=== PATIENT | male | born 1935 | race Caucasian/White ===

== ENCOUNTER 2018-11-01 21:08 | Emergency (ER) | payer MEDICARE, BC, MEDICAID ==
[~2018-11-01] VITALS: Ht 165.1 cm; Wt 68.0 kg
[2018-11-01] MEDS ORDERED: TYLENOL EXTRA500 MG ORAL (21:20)
[2018-11-01] MEDS ORDERED: BISACODYL5 MG ORAL (21:20)
[2018-11-01] MEDS ORDERED: LOSARTAN POTASS50 MG ORAL (21:20)
[2018-11-01] MEDS ORDERED: COLACE100 MG ORAL (21:20)
[2018-11-01 21:34] VITALS: BP 143/115
--- NOTE | 2018-11-02 00:56 | Emergency Room Report ---
History of Present Illness General Chief Complaint: Multiple Trauma/Fall Source: EMS Present Illness HPI 83-year-old male presents ED for evaluation. Patient brought in by EMS. Patient from [facility] status post mechanical fall. Patient was being moved by nursing staff when he fell forward tonight. Hitting his head. No LOC. Laceration to his forehead and scalp. Tetanus unknown. Patient denies any pain. Denies any nausea or vomiting. Denies any photophobia or blurry vision. Denies neck pain or neck stiffness. No other aggravating relieving factors. Denies any other associated symptoms Allergies: Uncoded Allergies: PENICILLIN (Allergy, Unknown, 11/01/18) Patient History Past Medical History: HTN Past Surgical History: none Pertinent Family History: none Social History: Denies: smoking, alcohol use, drug use Immunizations: UTD Reviewed Nursing Documentation: PMH: Agreed; PSxH: Agreed Nursing Documentation-PMH Hx Hypertension: Yes Review of Systems All Other Systems: negative except mentioned in HPI Physical Exam Vital Signs Date Time Temp Pulse Resp B/P (MAP) Pulse Ox O2 Delivery O2 Flow Rate FiO2 11/01/18 21:14 98.1 108 24 142/87 94 Room Air Sp02 EP Interpretation: reviewed, normal General Appearance: no apparent distress, alert, GCS 15, non-toxic Head: normocephalic, other - 1cm laceration to forehead, 3cm laceration to L parietal scalp Eyes: bilateral eye normal inspection, bilateral eye PERRL ENT: hearing grossly normal, normal pharynx, no angioedema, normal voice Neck: full range of motion, supple/symm/no masses, tender lateral Respiratory: chest non-tender, lungs clear, normal breath sounds, speaking full sentences Cardiovascular #1: normal inspection Gastrointestinal: normal inspection Rectal: deferred Genitourinary: no CVA tenderness Musculoskeletal: normal inspection Neurologic: alert, oriented x3, responsive, motor strength/tone normal, sensory intact, speech normal Psychiatric: normal inspection Skin: normal inspection Lymphatic: normal inspection Procedures Laceration/Wound Repair Laceration/Wound Repair #1: Consent: Verbal Wound Location: head - forehead Wound's Depth, Shape: linear Wound Explored: clean Betadine Prep?: Yes Anesthesia: 1% Lidocaine Wound Debrided: minimal Wound Repaired With: sutures Suture Size/Type: 6:0, proline Layer Closure?: No Sterile Dressing Applied?: Yes Splint Applied?: No Sling Applied?: No Patient Tolerated: Well Complications: None Laceration/Wound Repair #2: Consent: Verbal Wound Location: other - scalp Wound's Depth, Shape: linear Wound Explored: clean Betadine Prep?: Yes Anesthesia: 1% Lidocaine Wound Debrided: minimal Wound Repaired With: myrna Layer Closure?: No Sterile Dressing Applied?: Yes Splint Applied?: No Sling Applied?: No Patient Tolerated: Well Complications: None Medical Decision Making Diagnostic Impression: Primary Impression: Laceration of scalp Qualified Codes: S01.01XA - Laceration without foreign body of scalp, initial encounter Additional Impression: Head injury Qualified Codes: S09.90XA - Unspecified injury of head, initial encounter ER Course Hospital Course 83-year-old M presents ED with laceration to forehead/scalp s/p mecahnical fall. Differential diagnoses include: skull fx, intracranial injury, concussion Clinical course Patient placed on stretcher. After initial history and physical I ordered CT head, Cspine, TDAP CT head/Cspine shows no acute process. Patient at baseline mentation Wound irrigated and cleaned. Repaired. discussed with PMD Dr. Baer. Patient will be discharged back to [facility] Diagnosis - head injury, laceration of scalp Stable and discharged to SNF. wound care instructions given. Followup with PMD. Return to ED if symptoms recur or worsen CT/MRI/US Diagnostic Results CT/MRI/US Diagnostic Results #1: Imaging Test Ordered: CT Head Impression no acute process CT/MRI/US Diagnostic Results #2: Imaging Test Ordered: CT C spine Impression no acute process Last Vital Signs Date Time Temp Pulse Resp B/P (MAP) Pulse Ox O2 Delivery O2 Flow Rate FiO2 11/01/18 21:34 98.1 113 18 143/115 100 Room Air Status: improved Disposition: XFER SNF Condition: Stable Patient Instructions: Head Injury, Adult, Znen-de-Aizy, Facial Laceration, Easy -to-Read Reji Menjivar MD Nov 02, 2018 00:56
[2018-11-02] MEDS ORDERED: Tetanus/Diptheria/Pertussis Vaccine 0.5ml Syr IM ONE (01:00)
[2018-11-02 01:15] VITALS: BP 138/110
--- NOTE | 2018-11-02 10:02 | Diagnostic Imaging Report ---
Indication: Neck pain, status post fall Technique: Spiral acquisitions obtained through the cervical spine. No IV contrast utilized. Multiplanar reconstructions were generated. Total dose length product 1556.31 mGycm. CTDIvol(s) 70.38,12.24 mGy. Dose reduction achieved using automated exposure control. Comparison: none Findings: There is image degradation due to motion artifact. There is slight anterior offset of C7 on T1. The bony alignment is otherwise normal. There is no prevertebral soft tissue swelling. Vertebral body heights are preserved. No acute fractures. No dislocations. At C2-3, there is severe degenerative disc narrowing. There is severe narrowing of the right neural foramen. The disc is not well delineated, but there may appears to be be broad-based posterior disc protrusion resulting in moderate spinal stenosis. At C3-4, there is severe degenerative disc narrowing and bilateral facet arthrosis. There is broad-based posterior disc protrusion and osteophyte complex resulting in mild to moderate spinal stenosis. There is severe stenosis of the bilateral neural foramina. At C4-5, there is severe degenerative disc narrowing as well as bilateral facet arthrosis. No significant disc bulge or protrusion or spinal stenosis. There is severe neural foraminal stenosis bilaterally. At C5-6, there is moderate degenerative disc narrowing. There is bilateral facet arthrosis. There is minimal circumferential annular bulge and posterior osteophyte complex, resulting in borderline narrowing of the spinal canal. There is moderate bilateral neural foraminal stenosis. At C6-7, there is severe degenerative disc narrowing. There is bilateral facet arthrosis. No definite significant disc bulge or protrusion or spinal stenosis. There is moderate to severe neural foraminal narrowing bilaterally. At C7-T1, there is moderate degenerative disc narrowing. There is bilateral facet arthrosis. No definite significant disc bulge or protrusion, spinal stenosis, or neural foraminal narrowing. The included extra spinal soft tissues demonstrate heavy calcification of the bilateral carotid bifurcations. Impression: Limited exam due to motion artifact No acute bony trauma Advanced multilevel degenerative changes, as detailed on a level by level basis above This agrees with the preliminary interpretation provided overnight by [facility]. The CT scanner at [facility] is accredited by the [employer] and the scans are performed using protocols designed to limit radiation exposure to as low as reasonably achievable to attain images of sufficient resolution adequate for diagnostic evaluation.
--- NOTE | 2018-11-02 11:30 | Diagnostic Imaging Report ---
Indications: Head pain, status post fall Technique: Spiral acquisitions obtained through the brain. Angled axial and coronal 5 x 5 mm slices were reconstructed. Total dose length product 1556.31 mGycm. CTDI vol(s) 70.38,12.24 mGy. Dose reduction achieved using automated exposure control Comparison: None. Findings: There is some image degradation due to motion artifact. There is marked age-related enlargement of the ventricles and extra axial CSF spaces. There is mild periventricular deep white matter low-attenuation consistent with chronic ischemic change. Old lacunar infarct is seen in the right basal ganglia. No acute intracranial hemorrhage or edema, mass effect, nor midline shift. The calvarium is intact. There is complete opacification of the right maxillary sinus. The remaining sinuses are clear. The mastoids are clear. The calvarium is intact Impression: Chronic and age-related changes. Negative for acute intracranial bleed or mass effect Right maxillary sinus disease This agrees with the preliminary interpretation provided overnight by [facility]. The CT scanner at [facility] is accredited by the [employer] and the scans are performed using protocols designed to limit radiation exposure to as low as reasonably achievable to attain images of sufficient resolution adequate for diagnostic evaluation.
== END 2018-11-02 01:15 ==
LOC: EDBD 21:08 → EMR 21:41
DX: S01.01XA Laceration without foreign body of scalp, initial encounter (principal); S01.81XA Laceration without foreign body of other part of head, initial encounter; W19.XXXA Unspecified fall, initial encounter; Y92.129 Unspecified place in nursing home as the place of occurrence of the external cause; Z23 Encounter for immunization; I10 Essential (primary) hypertension; Z88.0 Allergy status to penicillin; M50.31 Other cervical disc degeneration, high cervical region; R51 Headache; J32.0 Chronic maxillary sinusitis
CPT/HCPCS: 70450; 72125; 90471; 90715; 99283

== ENCOUNTER 2019-10-17 21:57 | Inpatient (IN) | payer MEDICARE, BC, MEDICAID ==
[~2019-10-17] VITALS: Ht 167.6 cm; Wt 52.6 kg
[~2019-10-17 21:57] MED LIST: BISACODYL5 MG RC; COLACE100 MG ORAL; LOSARTAN POTASS50 MG ORAL; TYLENOL EXTRA500 MG ORAL
[2019-10-17 22:15] VITALS: BP 125/71
--- NOTE | 2019-10-17 22:20 | Emergency Room Report ---
History of Present Illness General Chief Complaint: Upper Respiratory Illness Source: Medical Record, EMS, PMD Present Illness HPI This an 84-year-old [facility] patient who presents with chief complaint of shortness of breath and congestion. Onset for 1 day. He has a cough. He has hypoxia. No nausea vomiting or diarrhea. No chest pain. History is limited on this patient because of his dementia. History is through primary care doctor in [facility] note. There was no mention of fever. Allergies: Uncoded Allergies: PENICILLIN (Allergy, Unknown, 11/01/18) Patient History Past Medical History: see triage record, old chart reviewed, HTN, CAD Past Surgical History: CABG, other Pertinent Family History: none Social History: Denies: smoking Immunizations: other Reviewed Nursing Documentation: PMH: Agreed; PSxH: Agreed Nursing Documentation-PMH Past Medical History: No History, Except For Hx Cardiac Problems: Yes - aorotcoronary bypass graft, muscle weakness Hx Hypertension: Yes - Hypertension Review of Systems Respiratory: Reports: cough, shortness of breath All Other Systems: limited - Secondary to patient's condition and dementia Physical Exam Vital Signs Date Time Temp Pulse Resp B/P (MAP) Pulse Ox O2 Delivery O2 Flow Rate FiO2 10/17/19 21:56 98.8 82 18 125/71 (89) Vitals normal. Sp02 EP Interpretation: reviewed, normal General Appearance: no apparent distress, alert, Chronically Ill Head: normocephalic, atraumatic Eyes: bilateral eye PERRL, bilateral eye EOMI ENT: hearing grossly normal, normal pharynx Neck: full range of motion, supple, no meningismus Respiratory: chest non-tender, rhonchi Cardiovascular #1: regular rate, rhythm, no murmur Gastrointestinal: normal bowel sounds, non tender, no mass, no organomegaly, no bruit, non-distended Musculoskeletal: back normal, normal range of motion, gait/station normal Psychiatric: mood/affect normal Procedures Critical Care Time Critical Care Time Critical care is mandated in this patient who presented with CHF and sepsis. Patient require my urgent intervention to attenuate the risks of metabolic collapse which may lead to cardiovascular collapse and . Critical care time is 35 minutes excluding any reportable procedure. Critical care time included evaluation, multiple reevaluation, looking at old charts, interpreting laboratory and diagnostic data, discussing case with patient and family and consultants, and charting. Medical Decision Making Diagnostic Impression: Primary Impression: Sepsis Qualified Codes: A41.9 - Sepsis, unspecified organism; R65.20 - Severe sepsis without septic shock; N17.9 - Acute kidney failure, unspecified Additional Impressions: UTI (urinary tract infection) Qualified Codes: N30.00 - Acute cystitis without hematuria Acute exacerbation of CHF (congestive heart failure) Qualified Codes: I50.9 - Heart failure, unspecified ACS (acute coronary syndrome) Anemia Qualified Codes: D64.9 - Anemia, unspecified NOE (acute kidney injury) Proteinuria Qualified Codes: R80.9 - Proteinuria, unspecified ER Course This patient presents with shortness of breath and cough. Chest x-ray and laboratory data showed CHF. His troponin is in the indeterminate range. This may be secondary to demand ischemia. He noted to have elevated lactic acid and white cell count. Source of infection is from urine. I did not give him a 30 cc/kg bolus of normal saline because of his elevated BNP and fluid overloaded picture on the chest x-ray. Blood pressures been stable. Patient will be admitted for IV antibiotics and gentle diuresis. I discussed the case with Dr. Michelle who will admit. EKG Diagnostic Results Rate: normal Rhythm: NSR ST Segments: other - NSST changes Rhythm Strip Diag. Results EP Interpretation: yes Rate: 100 Rhythm: NSR, no PVC's, no ectopy Chest X-Ray Diagnostic Results Chest X-Ray Diagnostic Results : Chest X-Ray Ordered: Yes # of Views/Limited/Complete: 1 View Indication: Shortness of Breath EP Interpretation: Yes Interpretation: no consolidation, no effusion, no pneumothorax, other - vasc congestion Impression: Other - chf Electronically Signed by: Chaka Lobato MD Last Vital Signs Date Time Temp Pulse Resp B/P (MAP) Pulse Ox O2 Delivery O2 Flow Rate FiO2 10/17/19 21:56 98.8 82 18 125/71 (89) Status: improved Disposition: ADMITTED INPATIENT Condition: Serious Chaka Lobato MD Oct 17, 2019 22:20
[2019-10-17 22:58] LABS: BASOPHILS % (AUTO) 0.5 % (0.0-2.0); EOSINOPHILS % (AUTO) 1.7 % (0.0-3.0); HEMATOCRIT 31.9 % (42.0-52.0); HEMOGLOBIN 10.7 G/DL (14.2-18.0); LYMPHOCYTES % (AUTO) 11.2 % (20.0-45.0); MEAN CORPUSCULAR VOLUME 93 FL (80-99); MONOCYTES % (AUTO) 3.8 % (1.0-10.0); NEUTROPHILS % (AUTO) 82.8 % (45.0-75.0); PLATELET COUNT 196 K/UL (150-450); RED BLOOD COUNT 3.43 M/UL (4.70-6.10); RED CELL DISTRIBUTION WIDTH 11.5 % (11.6-14.8); WHITE BLOOD COUNT 15.3 K/UL (4.8-10.8)
[2019-10-17 23:12] LABS: ANION GAP 11 mmol/L (5-15); BLOOD UREA NITROGEN 44 mg/dL (7-18); CALCIUM 9.6 MG/DL (8.5-10.1); CARBON DIOXIDE 27 MMOL/L (21-32); CHLORIDE 104 MMOL/L (98-107); CREATININE 1.6 MG/DL (0.55-1.30); POTASSIUM 3.9 MMOL/L (3.5-5.1); SODIUM 142 MMOL/L (136-145)
[2019-10-17 23:28] LABS: ALANINE AMINOTRANSFERASE 16 U/L (12-78); ALBUMIN 2.9 G/DL (3.4-5.0); ALBUMIN/GLOBULIN RATIO 0.6 (1.0-2.7); ALKALINE PHOSPHATASE 89 U/L (46-116); ASPARTATE AMINO TRANSFERASE 15 U/L (15-37); BILIRUBIN,TOTAL 0.1 MG/DL (0.2-1.0); CKMB 0.6 NG/ML (0.0-3.6); CREATINE KINASE 31 U/L (26-308)
[2019-10-17] MEDS ORDERED: Enoxaparin 80mg Inj SUBQ ONE (23:45)
[2019-10-17 23:47] LABS: BILIRUBIN, URINE NEGATIVE (NEGATIVE); GLUCOSE, URINE (UA) NEGATIVE (NEGATIVE); KETONES,URINE NEGATIVE (NEGATIVE); NITRITE,URINE POSITIVE (NEGATIVE); PH,URINE 5 (4.5-8.0); PROTEIN,URINE 2+ (NEGATIVE); UROBILINOGEN,URINE NORMAL MG/DL (0.0-1.0)
[2019-10-17 23:50] LABS: COLOR,URINE YELLOW
[2019-10-17 23:56] LABS: APPEARANCE,URINE SLIGHTLY CLOUDY; LEUKOCYTE ESTERASE ,URINE 3+ (NEGATIVE)
[2019-10-18] VITALS (7 sets, daily range): BP systolic 103–147; BP diastolic 60–94
[2019-10-18] MEDS ORDERED: cefTRIAXone 1 GM in NS 55 ML IVPB ONE ×2
--- NOTE | 2019-10-18 00:20 | Emergency Room Report ---
Sepsis Event Note Evaluation Current Stage of Sepsis: Sepsis Possible Source: Genitourinary Focused Exam Allergies: Uncoded Allergies: PENICILLIN (Allergy, Unknown, 11/01/18) Date Exam Occurred: Oct 18, 2019 Time Exam Occurred: 00:20 Laboratory Studies Laboratory Tests Test 10/17/19 22:30 10/17/19 23:30 White Blood Count 15.3 K/UL (4.8-10.8) H Red Blood Count 3.43 M/UL (4.70-6.10) L Hemoglobin 10.7 G/DL (14.2-18.0) L Hematocrit 31.9 % (42.0-52.0) L Mean Corpuscular Volume 93 FL (80-99) Mean Corpuscular Hemoglobin 31.2 PG (27.0-31.0) H Mean Corpuscular Hemoglobin Concent 33.6 G/DL (32.0-36.0) Red Cell Distribution Width 11.5 % (11.6-14.8) L Platelet Count 196 K/UL (150-450) Mean Platelet Volume 6.7 FL (6.5-10.1) Neutrophils (%) (Auto) 82.8 % (45.0-75.0) H Lymphocytes (%) (Auto) 11.2 % (20.0-45.0) L Monocytes (%) (Auto) 3.8 % (1.0-10.0) Eosinophils (%) (Auto) 1.7 % (0.0-3.0) Basophils (%) (Auto) 0.5 % (0.0-2.0) Sodium Level 142 MMOL/L (136-145) Potassium Level 3.9 MMOL/L (3.5-5.1) Chloride Level 104 MMOL/L (98-107) Carbon Dioxide Level 27 MMOL/L (21-32) Anion Gap 11 mmol/L (5-15) Blood Urea Nitrogen 44 mg/dL (7-18) H Creatinine 1.6 MG/DL (0.55-1.30) H Estimat Glomerular Filtration Rate 41.6 mL/min (>60) Glucose Level 117 MG/DL (74-106) H Lactic Acid Level 3.30 mmol/L (0.4-2.0) H Calcium Level 9.6 MG/DL (8.5-10.1) Total Bilirubin 0.1 MG/DL (0.2-1.0) L Aspartate Amino Transf (AST/SGOT) 15 U/L (15-37) Alanine Aminotransferase (ALT/SGPT) 16 U/L (12-78) Alkaline Phosphatase 89 U/L (46-116) Total Creatine Kinase 31 U/L (26-308) Creatine Kinase MB 0.6 NG/ML (0.0-3.6) Creatine Kinase MB Relative Index 1.9 Troponin I 0.134 ng/mL (0.000-0.056) Pro-B-Type Natriuretic Peptide 4198 pg/mL (0-125) H Total Protein 7.6 G/DL (6.4-8.2) Albumin 2.9 G/DL (3.4-5.0) L Globulin 4.7 g/dL Albumin/Globulin Ratio 0.6 (1.0-2.7) L Urine Color Yellow Urine Appearance Slightly cloudy Urine pH 5 (4.5-8.0) Urine Specific [place] 1.020 (1.005-1.035) Urine Protein 2+ (NEGATIVE) H Urine Glucose (UA) Negative (NEGATIVE) Urine Ketones Negative (NEGATIVE) Urine Blood 3+ (NEGATIVE) H Urine Nitrite Positive (NEGATIVE) H Urine Bilirubin Negative (NEGATIVE) Urine Urobilinogen Normal MG/DL (0.0-1.0) Urine Leukocyte Esterase 3+ (NEGATIVE) H Urine RBC 2-4 /HPF (0 - 0) H Urine WBC Tntc /HPF (0 - 0) H Urine Squamous Epithelial Cells None /LPF (NONE/OCC) Urine Bacteria Moderate /HPF (NONE) H Vital Signs Last 24 Hour Vital Signs Date Time Temp Pulse Resp B/P (MAP) Pulse Ox O2 Delivery O2 Flow Rate FiO2 10/17/19 21:56 98.8 82 18 125/71 (89) Respiratory Exam: Rales Cardiovascular Exam: RRR Capillary Refill: Less Than 2 Seconds Peripheral Pulse: Strong Pulse Location: Radial Skin Exam: Normal Turgor Chaka Lobato MD Oct 18, 2019 00:20
[2019-10-18] MEDS ORDERED: Acetaminophen 650 MG SUPP RECTAL PRN (00:30)
[2019-10-18] MEDS ORDERED: LOSARTAN POTASS50 MG ORAL (00:34)
[2019-10-18] MEDS ORDERED: ALBUTEROL2.5 MG/3 M INH (00:34)
[2019-10-18] MEDS ORDERED: FERROUS SULFAT500 G1 PO (00:34)
[2019-10-18] MEDS ORDERED: GUAIFENESI100 MG/5 M ORAL (00:34)
[2019-10-18] MEDS ORDERED: TYLENOL EXTRA500 MG ORAL (00:35)
[2019-10-18] MEDS ORDERED: MILK OF MA400 MG/51 ORAL (00:35)
[2019-10-18] MEDS ORDERED: VITAMIN D34000 UNIT PO (01:45)
[2019-10-18] MEDS ORDERED: D5NS 1,000 ML IV SCH (03:00)
--- NOTE | 2019-10-18 09:11 | Diagnostic Imaging Report ---
Indication: Shortness of breath Technique: One view of the chest Comparison: none Findings: The heart is enlarged. Bilateral apical reticular nodular opacities likely reflect scarring. No definite infiltrates or effusions. The aorta is tortuous ectatic and calcified. There is evidence of prior CABG Impression: Cardiomegaly No definite acute process Chronic parenchymal changes of the bilateral lung apices
[2019-10-18] MEDS ORDERED: Losartan 50mg tab ORAL SCH (09:45)
[2019-10-18 10:19] LABS: HEMATOCRIT 29.4 % (42.0-52.0); HEMOGLOBIN 9.8 G/DL (14.2-18.0); MEAN CORPUSCULAR VOLUME 93 FL (80-99); PLATELET COUNT 200 K/UL (150-450); RED BLOOD COUNT 3.16 M/UL (4.70-6.10); RED CELL DISTRIBUTION WIDTH 11.5 % (11.6-14.8)
[2019-10-18 10:20] LABS: WHITE BLOOD COUNT 43.8 K/UL (4.8-10.8)
[2019-10-18 10:33] LABS: ANION GAP 10 mmol/L (5-15); BLOOD UREA NITROGEN 44 mg/dL (7-18); CARBON DIOXIDE 25 MMOL/L (21-32); CHLORIDE 104 MMOL/L (98-107); CREATININE 1.9 MG/DL (0.55-1.30); POTASSIUM 4.6 MMOL/L (3.5-5.1); SODIUM 139 MMOL/L (136-145)
[2019-10-18 10:45] LABS: ALANINE AMINOTRANSFERASE 13 U/L (12-78); ALBUMIN 2.6 G/DL (3.4-5.0); ALBUMIN/GLOBULIN RATIO 0.6 (1.0-2.7); ALKALINE PHOSPHATASE 81 U/L (46-116); ASPARTATE AMINO TRANSFERASE 18 U/L (15-37); BILIRUBIN,TOTAL 0.2 MG/DL (0.2-1.0); GAMMA GLUTAMYL TRANSPEPTIDASE 12 U/L (5-85); PHOSPHORUS 2.6 MG/DL (2.5-4.9)
[2019-10-18 12:53] LABS: FERRITIN 640 NG/ML (8-388)
[2019-10-18] MEDS ORDERED: Docusate 100mg cap ORAL SCH (13:00)
[2019-10-18 13:03] LABS: % IRON SATURATION 23 % (15-50); IRON 41 ug/dL (50-175); TOTAL IRON BINDING CAPACITY 179 ug/dL (250-450)
--- NOTE | 2019-10-18 14:08 | Infectious Diseases Prog Note ---
Assessment/Plan Problems: (1) Sepsis Assessment & Plan: source suspect UTI /Pyelonephritis will start meropenem and zyvox empirically pending cultures (2) UTI (urinary tract infection) Assessment & Plan: possible pyelonephritis complicated with sepsis , will start meropenem pending cultures (3) NOE (acute kidney injury) Assessment & Plan: suspect due to the above , rule out obstruction , continue hydration, will order renal US to rule out stone VS mass (4) Acute encephalopathy Assessment & Plan: due to the above , continue supportive care and hydration with antibiotics, monitor in tele Subjective Allergies: Coded Allergies: PENICILLINS (Verified Allergy, Unknown, 10/19/19) Objective Vital Signs Last 24 Hour Vital Signs Date Time Temp Pulse Resp B/P (MAP) Pulse Ox O2 Delivery O2 Flow Rate FiO2 10/18/19 12:00 98.1 79 19 106/81 (89) 100 10/18/19 12:00 89 10/18/19 09:45 103/65 10/18/19 09:00 Room Air 10/18/19 08:00 91 10/18/19 08:00 96.7 71 18 103/65 (78) 96 10/18/19 04:00 99.5 131 20 147/90 (109) 96 10/18/19 04:00 123 10/18/19 02:03 Room Air 10/18/19 01:53 97.5 10/18/19 01:49 102.2 131 20 124/94 (104) 97 10/18/19 01:00 98.8 99 18 130/86 98 Room Air 10/18/19 00:00 98.8 99 18 130/86 98 Room Air 10/17/19 22:15 82 18 10/17/19 22:15 98.8 92 18 125/71 96 Room Air 10/17/19 21:56 98.8 82 18 125/71 (89) Height (Feet): 5 Height (Inches): 6.00 Weight (Pounds): 117 Microbiology Date/Time Source Procedure Growth Status 10/18/19 00:00 Rectum Received Laboratory Tests Test 10/17/19 22:30 10/17/19 23:30 10/18/19 00:15 10/18/19 10:00 White Blood Count 15.3 K/UL (4.8-10.8) H Red Blood Count 3.43 M/UL (4.70-6.10) L Hemoglobin 10.7 G/DL (14.2-18.0) L Hematocrit 31.9 % (42.0-52.0) L Mean Corpuscular Volume 93 FL (80-99) Mean Corpuscular Hemoglobin 31.2 PG (27.0-31.0) H Mean Corpuscular Hemoglobin Concent 33.6 G/DL (32.0-36.0) Red Cell Distribution Width 11.5 % (11.6-14.8) L Platelet Count 196 K/UL (150-450) Mean Platelet Volume 6.7 FL (6.5-10.1) Neutrophils (%) (Auto) 82.8 % (45.0-75.0) H Lymphocytes (%) (Auto) 11.2 % (20.0-45.0) L Monocytes (%) (Auto) 3.8 % (1.0-10.0) Eosinophils (%) (Auto) 1.7 % (0.0-3.0) Basophils (%) (Auto) 0.5 % (0.0-2.0) Sodium Level 142 MMOL/L (136-145) Potassium Level 3.9 MMOL/L (3.5-5.1) Chloride Level 104 MMOL/L (98-107) Carbon Dioxide Level 27 MMOL/L (21-32) Anion Gap 11 mmol/L (5-15) Blood Urea Nitrogen 44 mg/dL (7-18) H Creatinine 1.6 MG/DL (0.55-1.30) H Estimat Glomerular Filtration Rate 41.6 mL/min (>60) Glucose Level 117 MG/DL (74-106) H Lactic Acid Level 3.30 mmol/L (0.4-2.0) H 2.90 mmol/L (0.66-2.22) H Calcium Level 9.6 MG/DL (8.5-10.1) Total Bilirubin 0.1 MG/DL (0.2-1.0) L Aspartate Amino Transf (AST/SGOT) 15 U/L (15-37) Alanine Aminotransferase (ALT/SGPT) 16 U/L (12-78) Alkaline Phosphatase 89 U/L (46-116) Total Creatine Kinase 31 U/L (26-308) Creatine Kinase MB 0.6 NG/ML (0.0-3.6) Creatine Kinase MB Relative Index 1.9 Troponin I 0.134 ng/mL (0.000-0.056) Pro-B-Type Natriuretic Peptide 4198 pg/mL (0-125) H Total Protein 7.6 G/DL (6.4-8.2) Albumin 2.9 G/DL (3.4-5.0) L Globulin 4.7 g/dL Albumin/Globulin Ratio 0.6 (1.0-2.7) L Urine Color Yellow Urine Appearance Slightly cloudy Urine pH 5 (4.5-8.0) Urine Specific [place] 1.020 (1.005-1.035) Urine Protein 2+ (NEGATIVE) H Urine Glucose (UA) Negative (NEGATIVE) Urine Ketones Negative (NEGATIVE) Urine Blood 3+ (NEGATIVE) H Urine Nitrite Positive (NEGATIVE) H Urine Bilirubin Negative (NEGATIVE) Urine Urobilinogen Normal MG/DL (0.0-1.0) Urine Leukocyte Esterase 3+ (NEGATIVE) H Urine RBC 2-4 /HPF (0 - 0) H Urine WBC Tntc /HPF (0 - 0) H Urine Squamous Epithelial Cells None /LPF (NONE/OCC) Urine Bacteria Moderate /HPF (NONE) H Iron Level 41 ug/dL (50-175) L Total Iron Binding Capacity 179 ug/dL (250-450) L Percent Iron Saturation 23 % (15-50) Unsaturated Iron Binding 138 ug/dL (112-346) Ferritin 640 NG/ML (8-388) H Vitamin B12 Level 290 PG/ML (193-986) Folate 7.4 NG/ML (8.6-58.9) L Test 10/18/19 10:05 White Blood Count 43.8 K/UL (4.8-10.8) #*H Red Blood Count 3.16 M/UL (4.70-6.10) L Hemoglobin 9.8 G/DL (14.2-18.0) L Hematocrit 29.4 % (42.0-52.0) L Mean Corpuscular Volume 93 FL (80-99) Mean Corpuscular Hemoglobin 31.0 PG (27.0-31.0) Mean Corpuscular Hemoglobin Concent 33.3 G/DL (32.0-36.0) Red Cell Distribution Width 11.5 % (11.6-14.8) L Platelet Count 200 K/UL (150-450) Mean Platelet Volume 6.5 FL (6.5-10.1) Neutrophils (%) (Auto) % (45.0-75.0) Lymphocytes (%) (Auto) % (20.0-45.0) Monocytes (%) (Auto) % (1.0-10.0) Eosinophils (%) (Auto) % (0.0-3.0) Basophils (%) (Auto) % (0.0-2.0) Differential Total Cells Counted 100 Neutrophils % (Manual) 95 % (45-75) H Lymphocytes % (Manual) 2 % (20-45) L Monocytes % (Manual) 3 % (1-10) Eosinophils % (Manual) 0 % (0-3) Basophils % (Manual) 0 % (0-2) Band Neutrophils 0 % (0-8) Platelet Estimate Adequate Platelet Morphology Normal Sodium Level 139 MMOL/L (136-145) Potassium Level 4.6 MMOL/L (3.5-5.1) Chloride Level 104 MMOL/L (98-107) Carbon Dioxide Level 25 MMOL/L (21-32) Anion Gap 10 mmol/L (5-15) Blood Urea Nitrogen 44 mg/dL (7-18) H Creatinine 1.9 MG/DL (0.55-1.30) H Estimat Glomerular Filtration Rate 34.1 mL/min (>60) Glucose Level 156 MG/DL (74-106) H Uric Acid 5.8 MG/DL (2.6-7.2) Calcium Level 9.0 MG/DL (8.5-10.1) Phosphorus Level 2.6 MG/DL (2.5-4.9) Magnesium Level 1.8 MG/DL (1.8-2.4) Total Bilirubin 0.2 MG/DL (0.2-1.0) Gamma Glutamyl Transpeptidase 12 U/L (5-85) Aspartate Amino Transf (AST/SGOT) 18 U/L (15-37) Alanine Aminotransferase (ALT/SGPT) 13 U/L (12-78) Alkaline Phosphatase 81 U/L (46-116) C-Reactive Protein, Quantitative 7.5 mg/dL (0.00-0.90) H Pro-B-Type Natriuretic Peptide 7693 pg/mL (0-125) H Total Protein 7.3 G/DL (6.4-8.2) Albumin 2.6 G/DL (3.4-5.0) L Globulin 4.7 g/dL Albumin/Globulin Ratio 0.6 (1.0-2.7) L Thyroid Stimulating Hormone (TSH) 1.019 uiU/mL (0.358-3.740) Current Medications Medications (Trade) Dose Ordered Sig/Riccardo Route PRN Reason Start Time Stop Time Status Last Admin Dose Admin Acetaminophen (Tylenol) 650 mg PRN PRN RECTAL TEMP>100.5 10/18/19 00:30 Dextrose/Sodium Chloride 1,000 ml @ 50 mls/hr Q20H IV 10/18/19 03:00 11/17/19 02:59 10/18/19 03:30 Docusate Sodium (Colace) 100 mg THREE TIMES A DAY ORAL 10/18/19 13:00 11/17/19 12:59 Linezolid 300 ml @ 300 mls/hr Q12HR IVPB 10/18/19 14:15 10/25/19 14:14 UNV Losartan Potassium (Cozaar) 50 mg DAILY ORAL 10/19/19 09:00 11/17/19 09:44 Meropenem 1 gm/ Sodium Chloride 55 ml @ 110 mls/hr Q8HR IVPB 10/18/19 14:15 10/23/19 14:14 UNV Ondansetron HCl (Zofran) 4 mg PRN PRN IVP Nausea & Vomiting 10/18/19 00:30 Zak Washburn M.D. Oct 18, 2019 14:08
--- NOTE | 2019-10-18 15:31 | History & Physical ---
History and Physical History & Physicial [id number] Rashaun Michelle MD Oct 18, 2019 15:31
[2019-10-18] MEDS: D5NS 1,000 ML IV SCH (15:35)
[2019-10-18] MEDS ORDERED: Hydromorphone 0.5mg/0.5ml inj IVP PRN (15:35)
--- NOTE | 2019-10-18 16:13 | Diagnostic Imaging Report ---
Indication: Abnormal renal function tests Technique: Grayscale and duplex images of the kidneys, retroperitoneum, and bladder were obtained. Comparison: None Findings: Exam is somewhat limited due to patient contracture. Right kidney measures 9.1 cm in length. Left kidney measures 9.4 cm in length. Both kidneys demonstrate mildly increased echogenicity and slight contour lobulation. No hydronephrosis. No focal abnormality. Normal inferior vena cava. Bladder is normal. Calculated prostate volume is 20 mL The abdominal aorta demonstrates a massive fusiform aneurysm. This measures 11.7 cm transverse by 10.6 cm AP. It demonstrates considerable mural thrombus. Impression: Massive fusiform abdominal aortic aneurysm. This critical value finding was discussed by phone with Dr. Michelle at the time of interpretation Mildly increased renal echogenicity, consistent with medical renal disease. Negative for hydronephrosis.
[2019-10-18] MEDS: Meropenem 1 GM in NS 55 ML IVPB SCH (17:27)
--- NOTE | 2019-10-18 18:15 | History and Physical Report ---
DATE OF ADMISSION: 10/17/2019 HISTORY OF PRESENT ILLNESS: The patient is an 84-year-old male, who is a resident of [facility]. The patient has dementia, is bedridden, and is DNR. The patient was transferred after conversation with the DPOA to emergency room because he had chest congestion. After initial evaluation, the patient is being admitted with the diagnosis of sepsis. Apparently, the patient has been coughing prior to coming to emergency room in the [facility] and had hypoxia. ALLERGIES: Penicillin. PAST SURGICAL HISTORY: Previous surgeries include coronary artery bypass graft. PAST MEDICAL HISTORY: Coronary artery disease, hypertension, and dementia. PHYSICAL EXAMINATION: GENERAL: On examination today, the patient was lethargic and nonverbal. The patient in position. VITAL SIGNS: Pulse rate variable from 71 to 131, the temperature was 99.5, blood pressure 147/90, and respiratory rate again variable around 20. HEENT: Head is normocephalic. Keeps the eyes closed. Oral cavity dry. There is dried blood over the tongue. It appears that the patient is biting his own tongue. NECK: Rigid to all direction. LUNGS: Rhonchi and decreased breath sounds over the bases. HEART: Tachycardic. ABDOMEN: Soft. EXTREMITIES: Lower extremities, no edema. NEUROLOGIC: The the patient is demented and has stiffness of the extremities. LABORATORY DATA: On admission, creatinine was 1.6; however, today, it is 1.9. The white blood cells on admission was 15.3 and today, it is 43.8. Urinalysis, too numerous to count wbc's, 3+ leukocyte esterase. IMPRESSION: This is an 84-year-old male with past history of dementia, bedridden, and lives in [facility]. He is admitted with sepsis and has evidence of UTI and evidence of renal failure. The patient is penicillin allergic and Do Not Resuscitate. PLAN: I discussed with DPOA. We will avoid any heroic measures; however, we will continue IV antibiotics and breathing treatments. We keep the patient NPO, as he is prone to aspiration. Speech Therapy evaluation is ordered. According to how the patient's condition evolves, we will make the proper changes in our future management. Rashaun Michelle M.D. DR: Stuart JOB#: [id number] CC:
[2019-10-18] MEDS: Pantoprazole Inj IVP SCH (20:49)
[2019-10-19] VITALS (7 sets, daily range): BP systolic 121–161; BP diastolic 54–101
--- NOTE | 2019-10-19 00:15 | Consultation ---
DATE OF CONSULTATION: 10/18/2019 CARDIOLOGY CONSULTATION CONSULTING PHYSICIAN: Arsenio Delgado M.D. REFERRING PHYSICIAN: Rashaun Michelle M.D. REASON FOR CONSULTATION: Elevated troponin level. HISTORY OF PRESENT ILLNESS: This is an 84-year-old male with advanced dementia who is bedridden and resides at a detention facility. He has a known history of coronary artery disease with prior CABG. He has had several days of apparent coughing and congestion with hypoxia that prompted him to be transferred to the emergency room last evening. He was noted to have signs of sepsis and an elevated troponin level prompting this consultation. The patient is unable to give any historical data and records have been reviewed. PAST MEDICAL HISTORY: Coronary artery disease, history of CABG, hypertension, cerebrovascular disease, dementia, and chronic kidney disease. MEDICATIONS: Prior to admission, reviewed and reconciled. Current MAR reviewed and reconciled. ADVANCED DIRECTIVES: DNR. ALLERGIES: Penicillin. FAMILY HISTORY: Not known. SOCIAL HISTORY: Not obtainable. REVIEW OF SYSTEMS: Otherwise not obtainable. Thorough review of records is performed x25 minutes and pertinent data outlined above. PHYSICAL EXAMINATION: GENERAL: Nonverbal, withdrawn, lethargic in a position. Monitored rhythm, sinus and sinus tachycardia. VITAL SIGNS: Blood pressure 147/90, heart rate 70 to 130, respiratory 18 to 22. Temperature 99.5. HEENT: Mucous membranes dry. Oral hygiene poor. Some dry blood. NECK: With decreased range of motion. Jugular venous pressure, unable to assess. LUNGS: Diminished breath sounds with rhonchi. CARDIAC: Regular rhythm, rapid rate. Normal S1, S2. No appreciable murmur, however, exam is limited. ABDOMEN: Soft and nontender. EXTREMITIES: With decreased capillary refill and no edema. No acute ischemic changes. NEUROLOGIC: Reveals increased rigidity, nonverbal. LABORATORY DATA: White count 43.8, hemoglobin 9.8. Troponin on admission 0.134. Natriuretic peptide 7600. B12 290, folate 7.4. Lactic acid 3.3, repeat is 3.9. Sodium 139, potassium 4.6, bicarb 25, BUN 44, and creatinine 1.9. Glucose 156. Chest x-ray on admission was notable for cardiomegaly and no acute process with median sternotomy changes. EKG in the emergency room revealed sinus rhythm with nonspecific ST-T wave changes. IMPRESSION: 1. Healthcare-associated pneumonia with sepsis. 2. Acute myocardial ischemia and possible [id number] myocardial infarction precipitated by increased demand due to sepsis and acute respiratory infection. 3. Severe leukocytosis. 4. Lactic acidosis. 5. Acute on chronic renal failure. 6. History of hypertension. 7. Acute on chronic diastolic congestive heart failure. 8. Ischemic cardiomyopathy. 9. B12 and folate deficiencies. PLAN: 1. Antimicrobials. 2. Respiratory hygiene. 3. Nasal oxygen. 4. No role for diuresis at this time. 5. Cautious hydration. 6. Antiplatelet therapy. 7. Low dose beta-regulo, titrate as blood pressure will tolerate. 8. DVT and stress ulcer prophylaxes. 9. DNR based on advanced directives. 10. Vitamin supplement as appropriate. 11. Consideration for further therapies to depend on clinical course. Arsenio Delgado M.D. DR: UVALDO JOB#: [id number] CC:
[2019-10-19] MEDS: Meropenem 1 GM in NS 55 ML IVPB SCH ×2 (05:45→16:58)
[2019-10-19] MEDS: D5NS 1,000 ML IV SCH ×2 (05:46→10:59)
[2019-10-19 07:32] LABS: HEMATOCRIT 26.1 % (42.0-52.0); HEMOGLOBIN 8.8 G/DL (14.2-18.0); MEAN CORPUSCULAR VOLUME 93 FL (80-99); PLATELET COUNT 173 K/UL (150-450); RED BLOOD COUNT 2.81 M/UL (4.70-6.10); RED CELL DISTRIBUTION WIDTH 11.4 % (11.6-14.8); WHITE BLOOD COUNT 16.2 K/UL (4.8-10.8)
[2019-10-19 08:13] LABS: ALANINE AMINOTRANSFERASE 12 U/L (12-78); ALBUMIN 2.3 G/DL (3.4-5.0); ALBUMIN/GLOBULIN RATIO 0.6 (1.0-2.7); ALKALINE PHOSPHATASE 65 U/L (46-116); ANION GAP 8 mmol/L (5-15); ASPARTATE AMINO TRANSFERASE 19 U/L (15-37); BILIRUBIN,TOTAL 0.2 MG/DL (0.2-1.0); BLOOD UREA NITROGEN 50 mg/dL (7-18); CALCIUM 8.8 MG/DL (8.5-10.1); CARBON DIOXIDE 27 MMOL/L (21-32); CHLORIDE 107 MMOL/L (98-107); CREATININE 1.8 MG/DL (0.55-1.30); PHOSPHORUS 2.5 MG/DL (2.5-4.9); POTASSIUM 3.8 MMOL/L (3.5-5.1); SODIUM 142 MMOL/L (136-145)
[2019-10-19] MEDS: Aspirin Baby 81mg ORAL SCH (09:00)
[2019-10-19] MEDS ORDERED: Losartan 50mg tab ORAL SCH (09:00)
[2019-10-19] MEDS: Vitamin B12 1000mcg/ml Inj IM SCH (09:38)
[2019-10-19] MEDS: Pantoprazole Inj IVP SCH ×2 (09:38→20:38)
[2019-10-19] MEDS ORDERED: Vancomycin 1.25gm/NS Premix q24h IVPB SCH (13:00)
--- NOTE | 2019-10-19 13:13 | Infectious Diseases Prog Note ---
Assessment/Plan Problems: (1) Sepsis Assessment & Plan: source suspect Pyelonephritis with gram negative rods, continue meropenem empirically pending final urine culture (2) UTI (urinary tract infection) Assessment & Plan: possible pyelonephritis complicated with sepsis , already on meropenem pending cultures (3) NOE (acute kidney injury) Assessment & Plan: suspect due to the above , with no evidence of obstruction on renal US , continue hydration, and close monitoring of renal function (4) Acute encephalopathy Assessment & Plan: due to the above , continue supportive care and hydration with antibiotics, monitor in tele (5) AAA (abdominal aortic aneurysm) without rupture Assessment & Plan: with clot , recommend vascular eval for possible stenting or resection Subjective ROS Limited/Unobtainable: Yes Allergies: Coded Allergies: PENICILLINS (Verified Allergy, Unknown, 10/19/19) Subjective He was resting in bed comfortable and quiet, unresponsive to verbal commands , afebrile, no cough or SOB, no diarrhea Objective Vital Signs Last 24 Hour Vital Signs Date Time Temp Pulse Resp B/P (MAP) Pulse Ox O2 Delivery O2 Flow Rate FiO2 10/19/19 12:00 97.5 92 18 144/90 (108) 95 10/19/19 12:00 84 10/19/19 09:00 Room Air 10/19/19 08:00 98.0 95 18 139/63 (88) 96 10/19/19 08:00 74 10/19/19 04:00 98.2 96 20 128/86 (100) 93 10/19/19 04:00 69 10/19/19 00:00 79 10/19/19 00:00 95.5 94 20 121/54 (76) 94 10/18/19 21:00 Room Air 10/18/19 20:00 98.2 88 16 129/74 (92) 94 10/18/19 20:00 101 10/18/19 16:00 97.7 68 19 109/60 (76) 98 10/18/19 16:00 101 Height (Feet): 5 Height (Inches): 6.00 Weight (Pounds): 116 General Appearance: no acute distress, cachetic HEENT: normocephalic, atraumatic, anicteric, mucous membranes moist, PERRL Respiratory/Chest: chest wall non-tender, lungs clear, normal breath sounds, no respiratory distress, no accessory muscle use Cardiovascular: normal peripheral pulses, normal rate, regular rhythm, no gallop/murmur, no JVD Abdomen: normal bowel sounds, soft, non tender, no scars, distended, mass - pulsatile in his abdomen Extremities: no cyanosis, no clubbing Skin: no rash, no lesions, no ulcers Neurologic/Psychiatric: unresponsiveness Lymphatic: no neck adenopathy, no groin adenopathy Musculoskeletal: normal muscle bulk, no effusion Microbiology Date/Time Source Procedure Growth Status 10/17/19 22:45 Blood Blood Culture - Preliminary NO GROWTH AFTER 24 HOURS Resulted 10/17/19 22:30 Blood Blood Culture - Preliminary NO GROWTH AFTER 24 HOURS Resulted 10/17/19 23:30 Urine,Clean Catch Urine Culture - Preliminary Gram Negative Bacillus 1 Resulted 10/18/19 00:00 Rectum Received Laboratory Tests Test 10/19/19 06:42 White Blood Count 16.2 K/UL (4.8-10.8) #H Red Blood Count 2.81 M/UL (4.70-6.10) L Hemoglobin 8.8 G/DL (14.2-18.0) L Hematocrit 26.1 % (42.0-52.0) L Mean Corpuscular Volume 93 FL (80-99) Mean Corpuscular Hemoglobin 31.5 PG (27.0-31.0) H Mean Corpuscular Hemoglobin Concent 33.8 G/DL (32.0-36.0) Red Cell Distribution Width 11.4 % (11.6-14.8) L Platelet Count 173 K/UL (150-450) Mean Platelet Volume 7.2 FL (6.5-10.1) Neutrophils (%) (Auto) % (45.0-75.0) Lymphocytes (%) (Auto) % (20.0-45.0) Monocytes (%) (Auto) % (1.0-10.0) Eosinophils (%) (Auto) % (0.0-3.0) Basophils (%) (Auto) % (0.0-2.0) Differential Total Cells Counted 100 Neutrophils % (Manual) 85 % (45-75) H Lymphocytes % (Manual) 10 % (20-45) L Monocytes % (Manual) 5 % (1-10) Eosinophils % (Manual) 0 % (0-3) Basophils % (Manual) 0 % (0-2) Band Neutrophils 0 % (0-8) Platelet Estimate Adequate Platelet Morphology Normal Hypochromasia 2+ Anisocytosis 1+ Sodium Level 142 MMOL/L (136-145) Potassium Level 3.8 MMOL/L (3.5-5.1) Chloride Level 107 MMOL/L (98-107) Carbon Dioxide Level 27 MMOL/L (21-32) Anion Gap 8 mmol/L (5-15) Blood Urea Nitrogen 50 mg/dL (7-18) H Creatinine 1.8 MG/DL (0.55-1.30) H Estimat Glomerular Filtration Rate 36.3 mL/min (>60) Glucose Level 168 MG/DL (74-106) H Lactic Acid Level 1.10 mmol/L (0.4-2.0) Uric Acid 5.8 MG/DL (2.6-7.2) Calcium Level 8.8 MG/DL (8.5-10.1) Phosphorus Level 2.5 MG/DL (2.5-4.9) Magnesium Level 1.9 MG/DL (1.8-2.4) Total Bilirubin 0.2 MG/DL (0.2-1.0) Aspartate Amino Transf (AST/SGOT) 19 U/L (15-37) Alanine Aminotransferase (ALT/SGPT) 12 U/L (12-78) Alkaline Phosphatase 65 U/L (46-116) Troponin I 0.162 ng/mL (0.000-0.056) C-Reactive Protein, Quantitative 10.5 mg/dL (0.00-0.90) H Pro-B-Type Natriuretic Peptide 8140 pg/mL (0-125) H Total Protein 6.4 G/DL (6.4-8.2) Albumin 2.3 G/DL (3.4-5.0) L Globulin 4.1 g/dL Albumin/Globulin Ratio 0.6 (1.0-2.7) L Current Medications Medications (Trade) Dose Ordered Sig/Riccardo Route PRN Reason Start Time Stop Time Status Last Admin Dose Admin Acetaminophen (Tylenol) 650 mg PRN PRN RECTAL TEMP>100.5 10/18/19 00:30 Aspirin (ASA) 81 mg DAILY ORAL 10/19/19 09:00 11/18/19 08:59 Carvedilol (Coreg) 3.125 mg EVERY 12 HOURS ORAL 10/18/19 22:30 11/17/19 22:29 Cyanocobalamin (Vitamin B12) 1,000 mcg DAILY IM 10/19/19 09:00 10/22/19 12:00 10/19/19 09:38 Dextrose/Sodium Chloride 1,000 ml @ 65 mls/hr [id number] IV 10/18/19 15:35 11/17/19 15:34 10/19/19 10:59 Folic Acid (Folate) 1 mg DAILY ORAL 10/19/19 09:00 11/18/19 08:59 Hydralazine HCl (Apresoline) 10 mg Q4H PRN IV bp over 160 syst 10/18/19 15:35 11/17/19 15:34 Hydromorphone HCl (Dilaudid) 0.5 mg Q6H PRN IVP For Pain 10/18/19 15:35 10/25/19 15:34 Meropenem 1 gm/ Sodium Chloride 55 ml @ 110 mls/hr Q12H IVPB 10/18/19 17:00 10/23/19 16:59 10/19/19 05:45 Ondansetron HCl (Zofran) 4 mg PRN PRN IVP Nausea & Vomiting 10/18/19 00:30 Pantoprazole (Protonix) 40 mg EVERY 12 HOURS IVP 10/18/19 21:00 11/17/19 20:59 10/19/19 09:38 Vancomycin HCl 1 gm/Dextrose 275 ml @ 183.708 mls/hr Q36H IVPB 10/21/19 01:00 10/26/19 00:59 Vancomycin/Sodium Chloride 275 ml @ 183.333 mls/hr ONCE IVPB 10/19/19 13:00 10/19/19 15:00 Zak Washburn M.D. Oct 19, 2019 13:13
--- NOTE | 2019-10-19 13:25 | General Progress Note ---
Assessment/Plan Problem List: (1) Sepsis ICD Codes: A41.9 - Sepsis, unspecified organism SNOMED: 43377627 Qualifiers: Qualified Codes: A41.9 - Sepsis, unspecified organism; R65.20 - Severe sepsis without septic shock; N17.9 - Acute kidney failure, unspecified (2) UTI (urinary tract infection) ICD Codes: N39.0 - Urinary tract infection, site not specified SNOMED: 77135787 Qualifiers: Qualified Codes: N30.00 - Acute cystitis without hematuria (3) NOE (acute kidney injury) ICD Codes: N17.9 - Acute kidney failure, unspecified SNOMED: 72794799, 8356473 (4) AAA (abdominal aortic aneurysm) without rupture ICD Codes: I71.4 - Abdominal aortic aneurysm, without rupture SNOMED: 81248225 Status Narrative This is an 84-year-old male with past history of dementia, bed bedridden, and lives in retirement. He is admitted with sepsis and has evidence of UTI and evidence of renal failure. The patient is penicillin allergic and Do Not Resuscitate. Assessment/Plan: I discussed with DPOA. We will avoid any heroic measures; however, we will continue IV antibiotics and breathing treatments. We keep the patient NPO, as he is prone to aspiration. Speech Therapy evaluation is ordered. Patient is high aspiration prone but no GT or NGT per DPOA no aggresive measures with AAA Subjective Date patient seen: Oct 19, 2019 ROS Limited/Unobtainable: Yes Allergies: Coded Allergies: PENICILLINS (Verified Allergy, Unknown, 10/19/19) Objective Last 24 Hour Vital Signs Date Time Temp Pulse Resp B/P (MAP) Pulse Ox O2 Delivery O2 Flow Rate FiO2 10/19/19 12:00 97.5 92 18 144/90 (108) 95 10/19/19 12:00 84 10/19/19 09:00 Room Air 10/19/19 08:00 98.0 95 18 139/63 (88) 96 10/19/19 08:00 74 10/19/19 04:00 98.2 96 20 128/86 (100) 93 10/19/19 04:00 69 10/19/19 00:00 79 10/19/19 00:00 95.5 94 20 121/54 (76) 94 10/18/19 21:00 Room Air 10/18/19 20:00 98.2 88 16 129/74 (92) 94 10/18/19 20:00 101 10/18/19 16:00 97.7 68 19 109/60 (76) 98 10/18/19 16:00 101 Intake and Output 10/18/19 10/19/19 19:00 07:00 Intake Total 50 ml Balance 50 ml Intake IV Total 50 ml # Voids 3 1 Laboratory Tests 10/19/19 06:42: White Blood Count 16.2#H, Red Blood Count 2.81L, Hemoglobin 8.8L, Hematocrit 26.1L, Mean Corpuscular Volume 93, Mean Corpuscular Hemoglobin 31.5H, Mean Corpuscular Hemoglobin Concent 33.8, Red Cell Distribution Width 11.4L, Platelet Count 173, Mean Platelet Volume 7.2, Neutrophils (%) (Auto) , Lymphocytes (%) (Auto) , Monocytes (%) (Auto) , Eosinophils (%) (Auto) , Basophils (%) (Auto) , Differential Total Cells Counted 100, Neutrophils % ( Manual) 85H, Lymphocytes % (Manual) 10L, Monocytes % (Manual) 5, Eosinophils % ( Manual) 0, Basophils % (Manual) 0, Band Neutrophils 0, Platelet Estimate Adequate, Platelet Morphology Normal, Hypochromasia 2+, Anisocytosis 1+, Sodium Level 142, Potassium Level 3.8, Chloride Level 107, Carbon Dioxide Level 27, Anion Gap 8, Blood Urea Nitrogen 50H, Creatinine 1.8H, Estimat Glomerular Filtration Rate 36.3, Glucose Level 168H, Lactic Acid Level 1.10, Uric Acid 5.8 , Calcium Level 8.8, Phosphorus Level 2.5, Magnesium Level 1.9, Total Bilirubin 0.2, Aspartate Amino Transf (AST/SGOT) 19, Alanine Aminotransferase (ALT/SGPT) 12, Alkaline Phosphatase 65, Troponin I 0.162H, C-Reactive Protein, Quantitative 10.5H, Pro-B-Type Natriuretic Peptide 8140H, Total Protein 6.4, Albumin 2.3L, Globulin 4.1, Albumin/Globulin Ratio 0.6L Height (Feet): 5 Height (Inches): 6.00 Weight (Pounds): 116 General Appearance: no apparent distress, lethargic, other - non verbal Cardiovascular: tachycardia Respiratory/Chest: decreased breath sounds Abdomen: soft Fouladian,Rashaun MD Oct 19, 2019 13:25
--- NOTE | 2019-10-19 19:15 | Consultation ---
DATE OF CONSULTATION: 10/19/2019 INFECTIOUS DISEASE CONSULTATION CONSULTING PHYSICIAN: Zak Washburn M.D. REFERRING PHYSICIAN: Rashaun Michelle M.D. REASON FOR CONSULTATION: Sepsis, pyelonephritis in a patient with penicillin allergy. Recommendation for antibiotics treatment. HISTORY OF PRESENT ILLNESS: The patient is an 84-year-old male who is a long-term resident with past medical history of hypertension, coronary artery disease, status post CABG, muscle weakness, hypertension was sent to [facility] Emergency Room with shortness of breath and congestion for 24 hours. The patient had a cough at the long-term, but dry. He also had some hypoxemia. No runny nose, sore throat, or earache. No phlegm. No fever or chills. In the ER, his temperature was 98.8 with a pulse of 82, respirations of 18. Workup in the ED including chest x-ray showed possible CHF, but no consolidation, effusion, or infiltration. His white count was significantly elevated at 43.8 concerning for sepsis. His urinalysis showed evidence of urine infection. So, Infectious Disease consultation was requested for antibiotics treatment and further management. As of note, the patient is poor historian, could not provide any history at this point. Most details were obtained from the medical record and nursing staff. REVIEW OF SYSTEMS: Unable to obtain. The patient is poor historian, cannot provide any history. PAST MEDICAL HISTORY: Significant for coronary artery disease status post bypass, dementia, hypertension. PAST SURGICAL HISTORY: Includes coronary artery bypass graft surgery. FAMILY HISTORY: Not contributory. SOCIAL HISTORY: The patient is a long-term resident. Retired. No recent drugs, tobacco, or alcohol. ALLERGIES: He is allergic to penicillin with unclear what kind of reaction. MEDICATIONS: The patient received ceftriaxone and Levaquin in the ER. For the rest of his medications, please refer to MAR. LABORATORY DATA: Showed white count of 43.8, hemoglobin of 9.8, platelet count of 200. BUN of 44, creatinine of 1.9. C-reactive protein of 7.5. Urinalysis showed positive nitrite, +3 leukocyte esterase, too numerous wbc to count, and moderate amount of bacteria. MICROBIOLOGY: Pending. IMAGING: Chest x-ray showed cardiomegaly. No definite acute process. Chronic parenchymal change of bilateral lung apices. PHYSICAL EXAMINATION: VITAL SIGNS: Temperature 98.1, pulse 79, respirations 19, blood pressure 106/81, saturation 100% on room air. GENERAL: Elderly male, lying in bed, altered, unresponsive with dry blood around his lips, not in distress. HEENT: Normocephalic and atraumatic. Unable to assess pupils since he does not open his eyes or follow commands. Has dry lips with dry blood on lips. Unable to assess oral cavity. NECK: Supple. No lymphadenopathy. CARDIOVASCULAR: Tachycardic. S1, S2 normal. No gallop. No murmur. LUNGS: Clear bilaterally. Diminished breathing sounds at the bases. No wheezing or rhonchi. Normal breathing efforts. ABDOMEN: Soft, nontender, nondistended. Pulsatile mass felt in the midline. GENITOURINARY: Normal genitalia. MUSCULOSKELETAL: He has muscle atrophy with no effusions in his joints. No edema. No cyanosis or clubbing. ASSESSMENT AND RECOMMENDATION: 1. Sepsis, suspect source pyelonephritis most likely. Rule out obstructive uropathy. We will start meropenem and Zyvox empirically pending blood culture and urine culture. We will deescalate antibiotics based on his culture results. 2. Acute pyelonephritis, complicated with sepsis. Rule out obstructive etiology. We will order ultrasound of the kidneys. The patient will be started on meropenem already, which will cover his pyelonephritis too. 3. Acute renal failure due to the above. Continue hydration pending renal ultrasound to rule out stone versus mass. 4. Acute encephalopathy, suspect due to the above. Continue supportive care, hydration, and antibiotics as needed. Thank you for the consult. ID will continue to follow. Zak Washburn M.D. DR: KENNY JOB#: [id number] CC:
[2019-10-20] VITALS (14 sets, daily range): BP systolic 52–159; BP diastolic 26–99
--- NOTE | 2019-10-20 03:00 | Progress Note ---
DATE: 10/19/2019 CARDIOLOGY PROGRESS NOTE SUBJECTIVE: Remains withdrawn. No respiratory distress. On empiric antimicrobials. OBJECTIVE: VITAL SIGNS: Blood pressure 144/90, heart rate 92, and respiratory rate 18. LUNGS: Clear. CARDIAC: Regular. ABDOMEN: Soft. EXTREMITIES: Trace edema. LABORATORY DATA: Urine culture, gram-negative bacillus. White count down to 15 and hemoglobin 8.8. Potassium 3.8. Lactic acid 1.1. BUN 50 and creatinine 1.8. Troponin 0.162. IMPRESSION: 1. Sepsis. 2. Acute myocardial ischemia. 3. Non-ST elevation myocardial infarction. 4. Acute on chronic systolic/diastolic congestive heart failure. 5. Acute on chronic renal failure. 6. B12 deficiency. 7. Folic acid deficiency. PLAN: 1. Titrate beta-regulo. 2. Anti-platelet therapy. 3. Hydration. 4. Vitamin supplementation. 5. Respiratory hygiene. Arsenio Delgado M.D. DR: FABIOLA JOB#: [id number] CC: JULIO CESAR
[2019-10-20] MEDS: Meropenem 1 GM in NS 55 ML IVPB SCH (04:05)
[2019-10-20] MEDS: Vitamin B12 1000mcg/ml Inj IM SCH (08:48)
[2019-10-20] MEDS: Pantoprazole Inj IVP SCH ×3 (09:00→21:33)
[2019-10-20] MEDS ORDERED: Carvedilol 6.25mg Tab ORAL SCH (09:00)
[2019-10-20] MEDS: Aspirin Baby 81mg ORAL SCH (09:00)
--- NOTE | 2019-10-20 12:27 | Consultation ---
History of Present Illness General Date patient seen: Oct 20, 2019 Chief Complaint: Upper Respiratory Illness Present Illness HPI This is an 84-year-old male, who is a resident of [facility] that has history of dementia, is bedridden, and is DNR. The patient was transferred after conversation with the DPOA to emergency room because he had chest congestion. After initial evaluation, the patient is being admitted with the diagnosis of sepsis. Apparently, the patient has been coughing prior to [facility] and had hypoxia. Imaging demonstrated large AAA. Surgery called to evaluate and assist with care. patient unable to provide meaningful history Allergies: Coded Allergies: PENICILLINS (Verified Allergy, Unknown, 10/19/19) Medication History Scheduled Bisacodyl* (Dulcolax*), 10 MG RC Q72H, (Reported) Cholecalciferol (Vitamin D3) (Vitamin D3), 5,000 UNIT PO DAILY, (Reported) Docusate Sodium* (Colace*), 100 MG ORAL THREE TIMES A DAY, (Reported) Ferrous Sulfate, Dried (Ferrous Sulfate), 325 GM PO TID, (Reported) Losartan Potassium* (Losartan Potassium*), 50 MG ORAL DAILY, (Reported) Magnesium Hydroxide* (Milk Of Magnesia*), 30 ML ORAL DAILY, (Reported) Scheduled PRN Acetaminophen* (Tylenol Extra Strength*), 500 MG ORAL Q6H PRN for Mild Pain/ Temp > 100.5, (Reported) Acetaminophen* (Tylenol Extra Strength*), 500 MG ORAL Q6H PRN for Mild Pain/ Temp > 100.5, (Reported) Albuterol Sulfate* (Albuterol Sulfate Hhn*), 3 ML INH Q4H PRN for Shortness of Breath, (Reported) Guaifenesin* (Guaifenesin*), 5 ML ORAL Q4H PRN for FOR COUGH, (Reported) Discontinued Medications Losartan Potassium* (Losartan Potassium*), 100 MG ORAL DAILY, (Reported) Discontinued Reason: Medication dose changed Patient History Limited by: medical condition History Provided By: Medical Record, PMD Healthcare decision maker Resuscitation status Do Not Resuscitate Advanced Directive on File No Past Medical/Surgical History Past Medical/Surgical History: (1) Head injury (2) Laceration of scalp (3) Anemia (4) Proteinuria (5) NOE (acute kidney injury) (6) ACS (acute coronary syndrome) (7) Acute exacerbation of CHF (congestive heart failure) (8) Sepsis (9) UTI (urinary tract infection) (10) Acute encephalopathy (11) AAA (abdominal aortic aneurysm) without rupture Review of Systems All Other Systems: negative except mentioned in HPI ROS Narrative unable to obtain given medical status Physical Exam General Appearance: no apparent distress Lines, tubes and drains: peripheral HEENT: mucous membranes moist Neck: normal inspection Respiratory/Chest: no respiratory distress, no accessory muscle use, decreased breath sounds Cardiovascular/Chest: normal rate Abdomen: soft, other - palpable large AAA Genitourinary/Rectal: normal rectal exam Extremities: normal inspection Skin Exam: warm/dry Neurologic: alert, responsive Last 24 Hour Vital Signs Date Time Temp Pulse Resp B/P (MAP) Pulse Ox O2 Delivery O2 Flow Rate FiO2 10/20/19 09:00 Room Air 10/20/19 08:00 98.4 107 20 159/81 (107) 99 10/20/19 08:00 81 10/20/19 04:00 97.8 82 20 128/88 (101) 96 10/20/19 04:00 93 10/20/19 00:00 98.7 100 18 109/71 (84) 95 10/20/19 00:00 104 10/19/19 22:20 161/97 10/19/19 22:17 89 161/97 (118) 10/19/19 21:00 Room Air 10/19/19 20:40 79 137/69 10/19/19 20:00 86 10/19/19 20:00 98.3 69 20 146/101 (116) 93 10/19/19 16:00 97.6 92 17 137/69 (91) 96 10/19/19 16:00 79 Intake and Output 10/19/19 10/20/19 19:00 07:00 Output Total 300 ml Balance -300 ml Output Urine Total 300 ml # Voids 2 Height (Feet): 5 Height (Inches): 6.00 Weight (Pounds): 116 Medications Current Medications Medications (Trade) Dose Ordered Sig/Riccardo Route PRN Reason Start Time Stop Time Status Last Admin Dose Admin Acetaminophen (Tylenol) 650 mg PRN PRN RECTAL TEMP>100.5 10/18/19 00:30 Aspirin (ASA) 81 mg DAILY ORAL 10/19/19 09:00 11/18/19 08:59 Carvedilol (Coreg) 6.25 mg EVERY 12 HOURS ORAL 10/20/19 09:00 11/19/19 08:59 Cyanocobalamin (Vitamin B12) 1,000 mcg DAILY IM 10/19/19 09:00 10/22/19 12:00 10/20/19 08:48 Dextrose/Sodium Chloride 1,000 ml @ 65 mls/hr [id number] IV 10/18/19 15:35 11/17/19 15:34 10/19/19 10:59 Folic Acid (Folate) 1 mg DAILY ORAL 10/19/19 09:00 11/18/19 08:59 Hydralazine HCl (Apresoline) 10 mg Q4H PRN IV bp over 160 syst 10/18/19 15:35 11/17/19 15:34 10/19/19 22:20 Hydromorphone HCl (Dilaudid) 0.5 mg Q6H PRN IVP For Pain 10/18/19 15:35 10/25/19 15:34 Meropenem 1 gm/ Sodium Chloride 55 ml @ 110 mls/hr Q12H IVPB 10/18/19 17:00 10/23/19 16:59 10/20/19 04:05 Ondansetron HCl (Zofran) 4 mg PRN PRN IVP Nausea & Vomiting 10/18/19 00:30 Pantoprazole (Protonix) 40 mg EVERY 12 HOURS IVP 10/18/19 21:00 11/17/19 20:59 10/20/19 09:12 Vancomycin HCl (Vanco rx to dose) 1 ea DAILY PRN MISC PHARMACY TO DOSE 10/19/19 14:00 11/18/19 13:59 Vancomycin HCl 1 gm/Dextrose 275 ml @ 183.708 mls/hr Q36H IVPB 10/21/19 01:00 10/26/19 00:59 Assessment/Plan Problem List: (1) Anemia ICD Codes: D64.9 - Anemia, unspecified SNOMED: 962356568 Qualifiers: Qualified Codes: D64.9 - Anemia, unspecified (2) Proteinuria ICD Codes: R80.9 - Proteinuria, unspecified SNOMED: 52909589 Qualifiers: Qualified Codes: R80.9 - Proteinuria, unspecified (3) NOE (acute kidney injury) ICD Codes: N17.9 - Acute kidney failure, unspecified SNOMED: 16774513, 6086425 (4) Sepsis Assessment & Plan: Abx as per PCP cont iv fluids diet as tolerated will monitor thank you DAILY ESTIMATED NEEDS: Needs based on Wasting, underweight, sepsis 52.8kg 30-35 kcals/kg 2191-8918 total kcals 1.25-2 g protein/kg 66-106 g total protein 25-30 mL/kg 0556-2354 total fluid mLs NUTRITION DIAGNOSIS: Increased kcal and pro needs r/t wasting, underweight status as evidenced by pt at 82% of [place] Body Weight w/ moderate to severe generalized wasting, NPO at this time. CURRENT DIET: NPO PO DIET RECOMMENDATIONS: Liberalized regular, texture per [facility] ENTERAL NUTRITION RECOMMENDATIONS: If part of POC, consult RD for TF recs ADDITIONAL RECOMMENDATIONS: 1) Maintain calibrated bed scale wts 2) Wound care: pt is NPO, comfort care, no recs at this time 3) Rec continuous D5 while NPO 4) Replete lytes as needed ICD Codes: A41.9 - Sepsis, unspecified organism SNOMED: 49538042 Qualifiers: Qualified Codes: A41.9 - Sepsis, unspecified organism; R65.20 - Severe sepsis without septic shock; N17.9 - Acute kidney failure, unspecified (5) UTI (urinary tract infection) ICD Codes: N39.0 - Urinary tract infection, site not specified SNOMED: 57914848 Qualifiers: Qualified Codes: N30.00 - Acute cystitis without hematuria (6) Acute encephalopathy ICD Codes: G93.40 - Encephalopathy, unspecified SNOMED: 56682001, 536028203 (7) AAA (abdominal aortic aneurysm) without rupture Assessment & Plan: Findings: Exam is somewhat limited due to patient contracture. Right kidney measures 9.1 cm in length. Left kidney measures 9.4 cm in length. Both kidneys demonstrate mildly increased echogenicity and slight contour lobulation. No hydronephrosis. No focal abnormality. Normal inferior vena cava. Bladder is normal. Calculated prostate volume is 20 mL The abdominal aorta demonstrates a massive fusiform aneurysm. This measures 11.7 cm transverse by 10.6 cm AP. It demonstrates considerable mural thrombus. Impression: Massive fusiform abdominal aortic aneurysm. This critical value finding was discussed by phone with Dr. Michelle at the time of interpretation Mildly increased renal echogenicity, consistent with medical renal disease. Negative for hydronephrosis. The massive AAA was noted incidentally on ultrasound. Patient is debilitated, bedbound, malnutrition, DNR. Given patient's goals of care current medical condition and overall care plan no acute surgical intervention is necessary for uncomplicated large AAA. No acute surgical intervention necessary. Continue with medical care and management. Given goals of care outpatient follow-up with cardiovascular surgery okay no acute intervention or transfer necessary while inpatient for current admission. ICD Codes: I71.4 - Abdominal aortic aneurysm, without rupture SNOMED: 87525850 (8) Head injury ICD Codes: S09.90XA - Unspecified injury of head, initial encounter SNOMED: 68645074 (9) ACS (acute coronary syndrome) ICD Codes: I24.9 - Acute ischemic heart disease, unspecified SNOMED: 747877923 (10) Acute exacerbation of CHF (congestive heart failure) ICD Codes: I50.9 - Heart failure, unspecified SNOMED: 222611421, 86105893786951 Qualifiers: Qualified Codes: I50.9 - Heart failure, unspecified (11) Laceration of scalp ICD Codes: S01.01XA - Laceration without foreign body of scalp, initial encounter SNOMED: 300256046 Rubén Davis Oct 20, 2019 12:27
--- NOTE | 2019-10-20 13:19 | General Progress Note ---
Assessment/Plan Problem List: (1) Sepsis ICD Codes: A41.9 - Sepsis, unspecified organism SNOMED: 45177206 Qualifiers: Qualified Codes: A41.9 - Sepsis, unspecified organism; R65.20 - Severe sepsis without septic shock; N17.9 - Acute kidney failure, unspecified (2) UTI (urinary tract infection) ICD Codes: N39.0 - Urinary tract infection, site not specified SNOMED: 61176079 Qualifiers: Qualified Codes: N30.00 - Acute cystitis without hematuria (3) NOE (acute kidney injury) ICD Codes: N17.9 - Acute kidney failure, unspecified SNOMED: 95257397, 6161894 (4) AAA (abdominal aortic aneurysm) without rupture ICD Codes: I71.4 - Abdominal aortic aneurysm, without rupture SNOMED: 37035387 Status: unchanged Assessment/Plan: check labs in am NPO as aspiration prone Antibiotics ? DC in am I discussed with DPOA. We will avoid any heroic measures; however, we will continue IV antibiotics and breathing treatments. We keep the patient NPO, as he is prone to aspiration. Speech Therapy evaluation is ordered. Patient is high aspiration prone but no GT or NGT per DPOA no aggressive measures with AAA Subjective ROS Limited/Unobtainable: Yes Allergies: Coded Allergies: PENICILLINS (Verified Allergy, Unknown, 10/19/19) Objective Last 24 Hour Vital Signs Date Time Temp Pulse Resp B/P (MAP) Pulse Ox O2 Delivery O2 Flow Rate FiO2 10/20/19 12:00 107 10/20/19 12:00 98.6 97 20 149/99 (116) 98 10/20/19 09:00 Room Air 10/20/19 08:00 98.4 107 20 159/81 (107) 99 10/20/19 08:00 81 10/20/19 04:00 97.8 82 20 128/88 (101) 96 10/20/19 04:00 93 10/20/19 00:00 98.7 100 18 109/71 (84) 95 10/20/19 00:00 104 10/19/19 22:20 161/97 10/19/19 22:17 89 161/97 (118) 10/19/19 21:00 Room Air 10/19/19 20:40 79 137/69 10/19/19 20:00 86 10/19/19 20:00 98.3 69 20 146/101 (116) 93 10/19/19 16:00 97.6 92 17 137/69 (91) 96 10/19/19 16:00 79 Intake and Output 10/19/19 10/20/19 19:00 07:00 Output Total 300 ml Balance -300 ml Output Urine Total 300 ml # Voids 2 Height (Feet): 5 Height (Inches): 6.00 Weight (Pounds): 116 General Appearance: no apparent distress Cardiovascular: tachycardia Respiratory/Chest: decreased breath sounds Abdomen: soft Rashaun Michelle MD Oct 20, 2019 13:19
--- NOTE | 2019-10-20 13:35 | Infectious Diseases Prog Note ---
Assessment/Plan Problems: (1) Sepsis Assessment & Plan: source suspect Pyelonephritis with E coli , will switch meropenem empirically to ceftriaxone to treat for total of two weeks . EOT (2) UTI (urinary tract infection) Assessment & Plan: possible pyelonephritis complicated with sepsis , now on ceftriaxone for two weeks (3) NOE (acute kidney injury) Assessment & Plan: suspect due to the above , with no evidence of obstruction on renal US , continue hydration, and close monitoring of renal function (4) Acute encephalopathy Assessment & Plan: due to the above , continue supportive care and hydration with antibiotics, monitor in tele (5) AAA (abdominal aortic aneurysm) without rupture Assessment & Plan: with clot , recommend vascular eval for possible stenting or resection Subjective ROS Limited/Unobtainable: Yes Allergies: Coded Allergies: PENICILLINS (Verified Allergy, Unknown, 10/19/19) Subjective He was more awake today , resting in bed comfortable and quiet, unresponsive to verbal commands , afebrile, has some phlegm coming out of his mouth , no SOB, no diarrhea Objective Vital Signs Last 24 Hour Vital Signs Date Time Temp Pulse Resp B/P (MAP) Pulse Ox O2 Delivery O2 Flow Rate FiO2 10/20/19 12:00 107 10/20/19 12:00 98.6 97 20 149/99 (116) 98 10/20/19 09:00 Room Air 10/20/19 08:00 98.4 107 20 159/81 (107) 99 10/20/19 08:00 81 10/20/19 04:00 97.8 82 20 128/88 (101) 96 10/20/19 04:00 93 10/20/19 00:00 98.7 100 18 109/71 (84) 95 10/20/19 00:00 104 10/19/19 22:20 161/97 10/19/19 22:17 89 161/97 (118) 10/19/19 21:00 Room Air 10/19/19 20:40 79 137/69 10/19/19 20:00 86 10/19/19 20:00 98.3 69 20 146/101 (116) 93 10/19/19 16:00 97.6 92 17 137/69 (91) 96 10/19/19 16:00 79 Height (Feet): 5 Height (Inches): 6.00 Weight (Pounds): 116 General Appearance: WD/WN, no acute distress HEENT: normocephalic, atraumatic, anicteric, mucous membranes moist, PERRL Respiratory/Chest: chest wall non-tender, no respiratory distress, no accessory muscle use, decreased breath sounds, crackles/rales Cardiovascular: normal peripheral pulses, normal rate, regular rhythm, no gallop/murmur, no JVD Abdomen: normal bowel sounds, soft, non tender, no organomegaly, non distended , no mass, no scars Extremities: no cyanosis, no clubbing Skin: no rash, no lesions Neurologic/Psychiatric: unresponsiveness Lymphatic: no neck adenopathy, no groin adenopathy Musculoskeletal: normal muscle bulk Microbiology Date/Time Source Procedure Growth Status 10/17/19 22:45 Blood Blood Culture - Preliminary NO GROWTH AFTER 48 HOURS Resulted 10/17/19 22:30 Blood Blood Culture - Preliminary NO GROWTH AFTER 48 HOURS Resulted 10/18/19 00:00 Nasal Nares MRSA Culture - Final NO METHICILLIN RESISTANT STAPH AUREUS... Complete 10/17/19 23:30 Urine,Clean Catch Urine Culture - Final Escherichia Coli Complete 10/18/19 00:00 Rectum - Final NO CARBAPENEM-RESISTANT ENTEROBACTERI... Complete 10/18/19 00:00 Rectum Received Current Medications Medications (Trade) Dose Ordered Sig/Riccardo Route PRN Reason Start Time Stop Time Status Last Admin Dose Admin Acetaminophen (Tylenol) 650 mg PRN PRN RECTAL TEMP>100.5 10/18/19 00:30 Aspirin (ASA) 81 mg DAILY ORAL 10/19/19 09:00 11/18/19 08:59 Carvedilol (Coreg) 12.5 mg EVERY 12 HOURS ORAL 10/20/19 21:00 11/19/19 08:59 Ceftriaxone Sodium 2 gm/ Dextrose 55 ml @ 110 mls/hr Q24H IVPB 10/20/19 14:00 10/27/19 13:59 Clonidine HCl (Catapres TTS-1) 1 patch QWEEK TDERMAL 10/20/19 14:00 11/19/19 13:59 Cyanocobalamin (Vitamin B12) 1,000 mcg DAILY IM 10/19/19 09:00 10/22/19 12:00 10/20/19 08:48 Dextrose/Sodium Chloride 1,000 ml @ 65 mls/hr [id number] IV 10/18/19 15:35 11/17/19 15:34 10/19/19 10:59 Folic Acid (Folate) 1 mg DAILY ORAL 10/19/19 09:00 11/18/19 08:59 Hydralazine HCl (Apresoline) 10 mg Q4H PRN IV bp over 160 syst 10/18/19 15:35 11/17/19 15:34 10/19/19 22:20 Hydromorphone HCl (Dilaudid) 0.5 mg Q6H PRN IVP For Pain 10/18/19 15:35 10/25/19 15:34 Nitroglycerin (Nitro-Bid) 1 inch TID@0600,1200,1800 TOPIC 10/20/19 18:00 11/19/19 17:59 Ondansetron HCl (Zofran) 4 mg PRN PRN IVP Nausea & Vomiting 10/18/19 00:30 Pantoprazole (Protonix) 40 mg EVERY 12 HOURS IVP 10/18/19 21:00 11/17/19 20:59 10/20/19 09:12 Zak Washburn M.D. Oct 20, 2019 13:35
[2019-10-20] MEDS ORDERED: cefTRIAXone 2 GM in D5W 55 ML IVPB SCH (14:00)
[2019-10-20] MEDS: D5NS 1,000 ML IV SCH (14:20)
--- NOTE | 2019-10-20 14:56 | Diagnostic Imaging Report ---
Indication: Cough Technique: One view of the chest Comparison: 10/17/2019 Findings: There is bilateral hazy airspace disease, increased on the left, probably stable on the right. The heart size is normal. There may be retrocardiac hiatal hernia. The aorta is tortuous and calcified and ectatic. There is evidence of prior CABG Impression: Bilateral hazy airspace disease, edema versus infiltrates, slightly increased on the left and stable on the right since 10/17/2019
[2019-10-20] MEDS ORDERED: Nitroglycerin 2% oint pkt TOPIC SCH (18:00)
[2019-10-20] MEDS ORDERED: Carvedilol 12.5mg tab ORAL SCH (21:00)
[2019-10-21] VITALS (20 sets, daily range): BP systolic 40–111; BP diastolic 20–73
[2019-10-21] MEDS ORDERED: Vancomycin 1gm in D5W 275ml IVPB SCH (01:00)
--- NOTE | 2019-10-21 01:45 | Progress Note ---
DATE: 10/20/2019 CARDIOLOGY PROGRESS NOTE SUBJECTIVE: Condition is deteriorating. The patient is not able to take anything by mouth and noted for no artificial means of nutrition. Monitored rhythm, with episodes of second-degree AV block and bradyarrhythmia. OBJECTIVE: VITAL SIGNS: Blood pressure 109/71 to 149/99, heart rate 62 to 107, respiratory rate 20, and afebrile. GENERAL: Poorly responsive. LUNGS: Diminished breath sounds. CARDIAC: Regular rhythm and rate. Normal S1, S2. A 1/6 systolic murmur at apex. ABDOMEN: Soft, slightly distended. EXTREMITIES: Trace edema. LABORATORY DATA: Labs pending. IMPRESSION: 1. Acute myocardial infarction. 2. E. coli urinary tract infection with severe sepsis. 3. Acute diastolic and systolic congestive heart failure. 4. Severe protein-calorie malnutrition. 5. Second-degree heart block. 6. Acute on chronic renal failure. 7. Dysphagia. 8. Condition critical. Prognosis guarded. PLAN: 1. DNR, DNI. 2. Conservative management. 3. No invasive interventions. 4. Discontinue beta-regulo and clonidine. 5. Continue cardiac monitoring. 6. Topical nitrates. 7. Maintenance hydration and volume support. 8. Trend troponin levels. Arsenio Delgado M.D. DR: PASQUALE JOB#: [id number] CC:
[2019-10-21] MEDS: D5NS 1,000 ML IV SCH (04:50)
[2019-10-21 07:13] LABS: HEMATOCRIT 22.6 % (42.0-52.0); HEMOGLOBIN 7.7 G/DL (14.2-18.0); MEAN CORPUSCULAR VOLUME 93 FL (80-99); PLATELET COUNT 114 K/UL (150-450); RED BLOOD COUNT 2.43 M/UL (4.70-6.10); RED CELL DISTRIBUTION WIDTH 11.9 % (11.6-14.8); WHITE BLOOD COUNT 20.3 K/UL (4.8-10.8)
[2019-10-21 08:27] LABS: PHOSPHORUS 4.5 MG/DL (2.5-4.9)
[2019-10-21 08:28] LABS: ALANINE AMINOTRANSFERASE 263 U/L (12-78); ALBUMIN 2.5 G/DL (3.4-5.0); ALBUMIN/GLOBULIN RATIO 0.7 (1.0-2.7); ALKALINE PHOSPHATASE 59 U/L (46-116); ANION GAP 20 mmol/L (5-15); ASPARTATE AMINO TRANSFERASE 494 U/L (15-37); BILIRUBIN,TOTAL 0.3 MG/DL (0.2-1.0); BLOOD UREA NITROGEN 47 mg/dL (7-18); CALCIUM 8.8 MG/DL (8.5-10.1); CARBON DIOXIDE 16 MMOL/L (21-32); CHLORIDE 111 MMOL/L (98-107); CREATININE 2.7 MG/DL (0.55-1.30); POTASSIUM 4.7 MMOL/L (3.5-5.1); SODIUM 147 MMOL/L (136-145)
[2019-10-21] MEDS: Vitamin B12 1000mcg/ml Inj IM SCH (08:56)
[2019-10-21] MEDS: Pantoprazole Inj IVP SCH (08:56)
[2019-10-21] MEDS: Aspirin Baby 81mg ORAL SCH (09:00)
--- NOTE | 2019-10-21 09:44 | General Progress Note ---
Assessment/Plan Problem List: (1) Sepsis ICD Codes: A41.9 - Sepsis, unspecified organism SNOMED: 19359103 Qualifiers: Qualified Codes: A41.9 - Sepsis, unspecified organism; R65.20 - Severe sepsis without septic shock; N17.9 - Acute kidney failure, unspecified (2) UTI (urinary tract infection) ICD Codes: N39.0 - Urinary tract infection, site not specified SNOMED: 75961891 Qualifiers: Qualified Codes: N30.00 - Acute cystitis without hematuria (3) NOE (acute kidney injury) ICD Codes: N17.9 - Acute kidney failure, unspecified SNOMED: 86934756, 8566343 (4) AAA (abdominal aortic aneurysm) without rupture ICD Codes: I71.4 - Abdominal aortic aneurysm, without rupture SNOMED: 13350973 (5) Abdominal aortic aneurysm (AAA) greater than 5.5 cm in diameter in male ICD Codes: I71.4 - Abdominal aortic aneurysm, without rupture SNOMED: 315461191 (6) Shock circulatory ICD Codes: R57.9 - Shock, unspecified SNOMED: 44030028 Status: deteriorating Assessment/Plan: deteriorating- Hypotensive Cr samuel Troponin 177 discussed with DPOA Comfort care to med surg Preterminal I discussed with DPOA. We will avoid any heroic measures; however, we will continue IV antibiotics and breathing treatments. We keep the patient NPO, as he is prone to aspiration. Speech Therapy evaluation is ordered. Patient is high aspiration prone but no GT or NGT per DPOA no aggressive measures with AAA Subjective Date patient seen: Oct 21, 2019 ROS Limited/Unobtainable: Yes Allergies: Coded Allergies: PENICILLINS (Verified Allergy, Unknown, 10/19/19) Objective Last 24 Hour Vital Signs Date Time Temp Pulse Resp B/P (MAP) Pulse Ox O2 Delivery O2 Flow Rate FiO2 10/21/19 08:00 97.9 66 27 82/49 (60) 97 10/21/19 06:25 59 91/58 (69) 10/21/19 06:15 58 88/48 (61) 10/21/19 04:45 57 89/59 (69) 96 10/21/19 04:00 96.1 37 18 104/52 (69) 96 10/21/19 04:00 73 10/21/19 03:45 72 95/36 (55) 97 10/21/19 03:27 Room Air 10/21/19 03:25 70 107/60 (76) 97 10/21/19 02:40 63 99/73 (82) 96 10/21/19 02:20 71 111/52 (71) 96 10/21/19 01:25 52 97/64 (75) 96 10/21/19 01:05 49 83/58 (66) 97 10/21/19 00:20 51 89/51 (64) 98 10/21/19 00:04 50 90/48 (62) 98 10/21/19 00:00 49 10/20/19 23:40 51 26 85/50 (62) 97 10/20/19 23:20 48 78/48 (58) 97 10/20/19 23:00 96.1 51 105/51 (69) 97 10/20/19 22:10 47 90/46 (61) 10/20/19 21:52 56 87/54 (65) 10/20/19 21:35 61 112/67 (82) 97 10/20/19 21:00 Room Air 10/20/19 20:04 51 52/26 (35) 99 10/20/19 20:00 52 10/20/19 19:32 79 73/35 (48) 10/20/19 19:26 97.8 56 20 57/31 (40) 93 10/20/19 18:18 149/99 10/20/19 16:00 55 10/20/19 16:00 97.9 105 19 117/55 (75) 94 10/20/19 14:18 149/99 10/20/19 12:00 107 10/20/19 12:00 98.6 97 20 149/99 (116) 98 Intake and Output 10/20/19 10/21/19 19:00 07:00 Intake Total 640 ml Balance 640 ml Intake IV Total 640 ml # Voids 2 2 # Bowel Movements 1 Laboratory Tests 10/21/19 06:13: White Blood Count 20.3H, Red Blood Count 2.43L, Hemoglobin 7.7L, Hematocrit 22.6L, Mean Corpuscular Volume 93, Mean Corpuscular Hemoglobin 31.6H, Mean Corpuscular Hemoglobin Concent 34.0, Red Cell Distribution Width 11.9, Platelet Count 114L, Mean Platelet Volume 7.6, Neutrophils (%) (Auto) , Lymphocytes (%) ( Auto) , Monocytes (%) (Auto) , Eosinophils (%) (Auto) , Basophils (%) (Auto) , Differential Total Cells Counted 100, Neutrophils % (Manual) 92H, Lymphocytes % (Manual) 7L, Monocytes % (Manual) 1, Eosinophils % (Manual) 0, Basophils % ( Manual) 0, Band Neutrophils 0, Platelet Estimate DecreasedL, Platelet Morphology Normal, Hypochromasia 1+, Sodium Level 147H, Potassium Level 4.7, Chloride Level 111H, Carbon Dioxide Level 16L, Anion Gap 20H, Blood Urea Nitrogen 47H, Creatinine 2.7H, Estimat Glomerular Filtration Rate 22.7, Glucose Level 159H, Calcium Level 8.8, Phosphorus Level 4.5, Magnesium Level 1.9, Total Bilirubin 0.3, Aspartate Amino Transf (AST/SGOT) 494H, Alanine Aminotransferase (ALT/SGPT) 263H, Alkaline Phosphatase 59, Troponin I 177.814H, C-Reactive Protein, Quantitative 4.2H, Pro-B-Type Natriuretic Peptide 79827S, Total Protein 6.2L, Albumin 2.5L, Globulin 3.7, Albumin/Globulin Ratio 0.7L Height (Feet): 5 Height (Inches): 6.00 Weight (Pounds): 116 General Appearance: no apparent distress Cardiovascular: normal rate, bradycardia Respiratory/Chest: decreased breath sounds Abdomen: distended, other - pulsating Rashaun Michelle MD Oct 21, 2019 09:44
[2019-10-21] MEDS ORDERED: Morphine Sulfate 2mg/ml Inj(IV/IM USE ONLY) IVP PRN ×2 (09:45→14:00)
[2019-10-21] MEDS ORDERED: D5NS 1,000 ML IV SCH ×2 (10:00→13:00)
[2019-10-21] MEDS ORDERED: cefTRIAXone 2 GM in D5W 55 ML IVPB SCH (14:00)
--- NOTE | 2019-10-21 14:17 | Surgery Progress Note ---
Surgery Progress Note Subjective Additional Comments no acute events Objective Last 24 Hour Vital Signs Date Time Temp Pulse Resp B/P (MAP) Pulse Ox O2 Delivery O2 Flow Rate FiO2 10/21/19 12:30 Room Air 10/21/19 12:10 95.0 50 72/41 (51) 75 10/21/19 11:00 76 100/46 (64) 95 10/21/19 10:15 67 89/52 (64) 93 10/21/19 10:00 67 89/50 (63) 90 10/21/19 09:30 60 82/49 (60) 93 10/21/19 09:00 64 81/46 (58) 90 10/21/19 09:00 Room Air 10/21/19 08:00 97.9 66 27 82/49 (60) 97 10/21/19 08:00 61 10/21/19 06:25 59 91/58 (69) 10/21/19 06:15 58 88/48 (61) 10/21/19 04:45 57 89/59 (69) 96 10/21/19 04:00 96.1 37 18 104/52 (69) 96 10/21/19 04:00 73 10/21/19 03:45 72 95/36 (55) 97 10/21/19 03:27 Room Air 10/21/19 03:25 70 107/60 (76) 97 10/21/19 02:40 63 99/73 (82) 96 10/21/19 02:20 71 111/52 (71) 96 10/21/19 01:25 52 97/64 (75) 96 10/21/19 01:05 49 83/58 (66) 97 10/21/19 00:20 51 89/51 (64) 98 10/21/19 00:04 50 90/48 (62) 98 10/21/19 00:00 49 10/20/19 23:40 51 26 85/50 (62) 97 10/20/19 23:20 48 78/48 (58) 97 10/20/19 23:00 96.1 51 105/51 (69) 97 10/20/19 22:10 47 90/46 (61) 10/20/19 21:52 56 87/54 (65) 10/20/19 21:35 61 112/67 (82) 97 10/20/19 21:00 Room Air 10/20/19 20:04 51 52/26 (35) 99 10/20/19 20:00 52 10/20/19 19:32 79 73/35 (48) 10/20/19 19:26 97.8 56 20 57/31 (40) 93 10/20/19 18:18 149/99 10/20/19 16:00 55 10/20/19 16:00 97.9 105 19 117/55 (75) 94 10/20/19 14:18 149/99 I&O Intake and Output 10/20/19 10/21/19 19:00 07:00 Intake Total 640 ml Balance 640 ml Intake IV Total 640 ml # Voids 2 2 # Bowel Movements 1 Cardiovascular: RSR Respiratory: clear Abdomen: soft, non-tender, present bowel sounds, other Extremities: no tenderness, no cyanosis Laboratory Tests Test 10/21/19 06:13 White Blood Count 20.3 K/UL (4.8-10.8) H Red Blood Count 2.43 M/UL (4.70-6.10) L Hemoglobin 7.7 G/DL (14.2-18.0) L Hematocrit 22.6 % (42.0-52.0) L Mean Corpuscular Volume 93 FL (80-99) Mean Corpuscular Hemoglobin 31.6 PG (27.0-31.0) H Mean Corpuscular Hemoglobin Concent 34.0 G/DL (32.0-36.0) Red Cell Distribution Width 11.9 % (11.6-14.8) Platelet Count 114 K/UL (150-450) L Mean Platelet Volume 7.6 FL (6.5-10.1) Neutrophils (%) (Auto) % (45.0-75.0) Lymphocytes (%) (Auto) % (20.0-45.0) Monocytes (%) (Auto) % (1.0-10.0) Eosinophils (%) (Auto) % (0.0-3.0) Basophils (%) (Auto) % (0.0-2.0) Differential Total Cells Counted 100 Neutrophils % (Manual) 92 % (45-75) H Lymphocytes % (Manual) 7 % (20-45) L Monocytes % (Manual) 1 % (1-10) Eosinophils % (Manual) 0 % (0-3) Basophils % (Manual) 0 % (0-2) Band Neutrophils 0 % (0-8) Platelet Estimate Decreased L Platelet Morphology Normal Hypochromasia 1+ Sodium Level 147 MMOL/L (136-145) H Potassium Level 4.7 MMOL/L (3.5-5.1) Chloride Level 111 MMOL/L (98-107) H Carbon Dioxide Level 16 MMOL/L (21-32) L Anion Gap 20 mmol/L (5-15) H Blood Urea Nitrogen 47 mg/dL (7-18) H Creatinine 2.7 MG/DL (0.55-1.30) H Estimat Glomerular Filtration Rate 22.7 mL/min (>60) Glucose Level 159 MG/DL (74-106) H Calcium Level 8.8 MG/DL (8.5-10.1) Phosphorus Level 4.5 MG/DL (2.5-4.9) Magnesium Level 1.9 MG/DL (1.8-2.4) Total Bilirubin 0.3 MG/DL (0.2-1.0) Aspartate Amino Transf (AST/SGOT) 494 U/L (15-37) H Alanine Aminotransferase (ALT/SGPT) 263 U/L (12-78) H Alkaline Phosphatase 59 U/L (46-116) Troponin I 177.814 ng/mL (0.000-0.056) C-Reactive Protein, Quantitative 4.2 mg/dL (0.00-0.90) H Pro-B-Type Natriuretic Peptide 21943 pg/mL (0-125) H Total Protein 6.2 G/DL (6.4-8.2) L Albumin 2.5 G/DL (3.4-5.0) L Globulin 3.7 g/dL Albumin/Globulin Ratio 0.7 (1.0-2.7) L Plan Problems: (1) Anemia (2) Proteinuria (3) NOE (acute kidney injury) (4) Sepsis Assessment & Plan: Abx as per PCP cont iv fluids diet as tolerated will monitor thank you DAILY ESTIMATED NEEDS: Needs based on Wasting, underweight, sepsis 52.8kg 30-35 kcals/kg 0649-1682 total kcals 1.25-2 g protein/kg 66-106 g total protein 25-30 mL/kg 2671-9216 total fluid mLs NUTRITION DIAGNOSIS: Increased kcal and pro needs r/t wasting, underweight status as evidenced by pt at 82% of [place] Body Weight w/ moderate to severe generalized wasting, NPO at this time. CURRENT DIET: NPO PO DIET RECOMMENDATIONS: Liberalized regular, texture per [employer]UCLE[employer] ENTERAL NUTRITION RECOMMENDATIONS: If part of POC, consult RD for TF recs ADDITIONAL RECOMMENDATIONS: 1) Maintain calibrated bed scale wts 2) Wound care: pt is NPO, comfort care, no recs at this time 3) Rec continuous D5 while NPO 4) Replete lytes as needed (5) UTI (urinary tract infection) (6) Acute encephalopathy (7) AAA (abdominal aortic aneurysm) without rupture Assessment & Plan: Findings: Exam is somewhat limited due to patient contracture. Right kidney measures 9.1 cm in length. Left kidney measures 9.4 cm in length. Both kidneys demonstrate mildly increased echogenicity and slight contour lobulation. No hydronephrosis. No focal abnormality. Normal inferior vena cava. Bladder is normal. Calculated prostate volume is 20 mL The abdominal aorta demonstrates a massive fusiform aneurysm. This measures 11.7 cm transverse by 10.6 cm AP. It demonstrates considerable mural thrombus. Impression: Massive fusiform abdominal aortic aneurysm. This critical value finding was discussed by phone with Dr. Michelle at the time of interpretation Mildly increased renal echogenicity, consistent with medical renal disease. Negative for hydronephrosis. The massive AAA was noted incidentally on ultrasound. Patient is debilitated, bedbound, malnutrition, DNR. Given patient's goals of care current medical condition and overall care plan no acute surgical intervention is necessary for uncomplicated large AAA. No acute surgical intervention necessary. Continue with medical care and management. Given goals of care outpatient follow-up with cardiovascular surgery okay no acute intervention or transfer necessary while inpatient for current admission. (8) Head injury (9) ACS (acute coronary syndrome) (10) Acute exacerbation of CHF (congestive heart failure) (11) Laceration of scalp Rubén Davis Oct 21, 2019 14:17
--- NOTE | 2019-10-21 16:08 | Infectious Diseases Prog Note ---
Assessment/Plan Problems: (1) Sepsis Assessment & Plan: source suspect Pyelonephritis with E coli , on ceftriaxone to treat for total of two weeks . EOT 11/01/19 (2) UTI (urinary tract infection) Assessment & Plan: possible pyelonephritis complicated with sepsis , now on ceftriaxone for two weeks (3) NOE (acute kidney injury) Assessment & Plan: suspect due to the above , with no evidence of obstruction on renal US , continue hydration, and close monitoring of renal function (4) Acute encephalopathy Assessment & Plan: due to the above , continue supportive care and hydration with antibiotics, monitor in tele (5) AAA (abdominal aortic aneurysm) without rupture Assessment & Plan: with clot , had surgical eval , no surgical intervention since stable Subjective ROS Limited/Unobtainable: Yes Allergies: Coded Allergies: PENICILLINS (Verified Allergy, Unknown, 10/19/19) Subjective He was resting in bed comfortable and quiet, unresponsive to verbal commands , afebrile, has some phlegm with cough , no SOB, no diarrhea Objective Vital Signs Last 24 Hour Vital Signs Date Time Temp Pulse Resp B/P (MAP) Pulse Ox O2 Delivery O2 Flow Rate FiO2 10/21/19 12:30 Room Air 10/21/19 12:10 95.0 50 72/41 (51) 75 10/21/19 11:00 76 100/46 (64) 95 10/21/19 10:15 67 89/52 (64) 93 10/21/19 10:00 67 89/50 (63) 90 10/21/19 09:30 60 82/49 (60) 93 10/21/19 09:00 64 81/46 (58) 90 10/21/19 09:00 Room Air 10/21/19 08:00 97.9 66 27 82/49 (60) 97 10/21/19 08:00 61 10/21/19 06:25 59 91/58 (69) 10/21/19 06:15 58 88/48 (61) 10/21/19 04:45 57 89/59 (69) 96 10/21/19 04:00 96.1 37 18 104/52 (69) 96 10/21/19 04:00 73 10/21/19 03:45 72 95/36 (55) 97 10/21/19 03:27 Room Air 10/21/19 03:25 70 107/60 (76) 97 2/21/20 02:40 63 99/73 (82) 96 10/21/19 02:20 71 111/52 (71) 96 10/21/19 01:25 52 97/64 (75) 96 10/21/19 01:05 49 83/58 (66) 97 10/21/19 00:20 51 89/51 (64) 98 10/21/19 00:04 50 90/48 (62) 98 10/21/19 00:00 49 10/20/19 23:40 51 26 85/50 (62) 97 10/20/19 23:20 48 78/48 (58) 97 10/20/19 23:00 96.1 51 105/51 (69) 97 10/20/19 22:10 47 90/46 (61) 10/20/19 21:52 56 87/54 (65) 10/20/19 21:35 61 112/67 (82) 97 10/20/19 21:00 Room Air 10/20/19 20:04 51 52/26 (35) 99 10/20/19 20:00 52 10/20/19 19:32 79 73/35 (48) 10/20/19 19:26 97.8 56 20 57/31 (40) 93 10/20/19 18:18 149/99 Height (Feet): 5 Height (Inches): 6.00 Weight (Pounds): 116 General Appearance: no acute distress, cachetic HEENT: normocephalic, atraumatic, anicteric, mucous membranes moist, PERRL Respiratory/Chest: chest wall non-tender, no respiratory distress, no accessory muscle use, decreased breath sounds, crackles/rales Cardiovascular: normal peripheral pulses, normal rate, regular rhythm, no gallop/murmur, no JVD Abdomen: normal bowel sounds, soft, non tender, no organomegaly, non distended , no mass, no scars, distended, hepatomegaly Extremities: no cyanosis, no clubbing Skin: no rash, no lesions Neurologic/Psychiatric: unresponsiveness Lymphatic: no neck adenopathy, no groin adenopathy Musculoskeletal: no effusion Laboratory Tests Test 10/21/19 06:13 White Blood Count 20.3 K/UL (4.8-10.8) H Red Blood Count 2.43 M/UL (4.70-6.10) L Hemoglobin 7.7 G/DL (14.2-18.0) L Hematocrit 22.6 % (42.0-52.0) L Mean Corpuscular Volume 93 FL (80-99) Mean Corpuscular Hemoglobin 31.6 PG (27.0-31.0) H Mean Corpuscular Hemoglobin Concent 34.0 G/DL (32.0-36.0) Red Cell Distribution Width 11.9 % (11.6-14.8) Platelet Count 114 K/UL (150-450) L Mean Platelet Volume 7.6 FL (6.5-10.1) Neutrophils (%) (Auto) % (45.0-75.0) Lymphocytes (%) (Auto) % (20.0-45.0) Monocytes (%) (Auto) % (1.0-10.0) Eosinophils (%) (Auto) % (0.0-3.0) Basophils (%) (Auto) % (0.0-2.0) Differential Total Cells Counted 100 Neutrophils % (Manual) 92 % (45-75) H Lymphocytes % (Manual) 7 % (20-45) L Monocytes % (Manual) 1 % (1-10) Eosinophils % (Manual) 0 % (0-3) Basophils % (Manual) 0 % (0-2) Band Neutrophils 0 % (0-8) Platelet Estimate Decreased L Platelet Morphology Normal Hypochromasia 1+ Sodium Level 147 MMOL/L (136-145) H Potassium Level 4.7 MMOL/L (3.5-5.1) Chloride Level 111 MMOL/L (98-107) H Carbon Dioxide Level 16 MMOL/L (21-32) L Anion Gap 20 mmol/L (5-15) H Blood Urea Nitrogen 47 mg/dL (7-18) H Creatinine 2.7 MG/DL (0.55-1.30) H Estimat Glomerular Filtration Rate 22.7 mL/min (>60) Glucose Level 159 MG/DL (74-106) H Calcium Level 8.8 MG/DL (8.5-10.1) Phosphorus Level 4.5 MG/DL (2.5-4.9) Magnesium Level 1.9 MG/DL (1.8-2.4) Total Bilirubin 0.3 MG/DL (0.2-1.0) Aspartate Amino Transf (AST/SGOT) 494 U/L (15-37) H Alanine Aminotransferase (ALT/SGPT) 263 U/L (12-78) H Alkaline Phosphatase 59 U/L (46-116) Troponin I 177.814 ng/mL (0.000-0.056) C-Reactive Protein, Quantitative 4.2 mg/dL (0.00-0.90) H Pro-B-Type Natriuretic Peptide 35403 pg/mL (0-125) H Total Protein 6.2 G/DL (6.4-8.2) L Albumin 2.5 G/DL (3.4-5.0) L Globulin 3.7 g/dL Albumin/Globulin Ratio 0.7 (1.0-2.7) L Current Medications Medications (Trade) Dose Ordered Sig/Riccardo Route PRN Reason Start Time Stop Time Status Last Admin Dose Admin Ceftriaxone Sodium 2 gm/ Dextrose 55 ml @ 110 mls/hr Q24H IVPB 10/21/19 14:00 11/01/19 13:59 Dextrose/Sodium Chloride 1,000 ml @ 50 mls/hr Q20H IV 10/21/19 13:00 11/17/19 12:59 10/21/19 13:04 Morphine Sulfate (Morphine Sulfate) 2 mg Q4H PRN IVP For Pain and RR over 20 10/21/19 14:00 10/28/19 13:59 Zak Washburn M.D. Oct 21, 2019 16:08
--- NOTE | 2019-10-21 23:45 | Progress Note ---
DATE: 10/21/2019 CARDIOLOGY PROGRESS NOTE SUBJECTIVE: The patient's condition has deteriorated. He has suffered significant myocardial ischemia and infarction with his troponin level jumping to 177. The patient was hypotensive yesterday. He did not respond to fluid challenges. He also has been unable to take medications due to his dysphagia and advance directives for no artificial means of nutrition. OBJECTIVE: VITAL SIGNS: Blood pressure 82/49, heart rate 66, respirations 27, afebrile. GENERAL: Poorly responsive. LUNGS: Diminished breath sounds. CARDIAC: Regular rhythm and rate. Normal S1, S2. A 1/6 systolic murmur at apex. ABDOMEN: Soft. EXTREMITIES: Trace edema. EKG, sinus rhythm, nonspecific ST-T wave changes. IMPRESSION: 1. Acute myocardial infarction. 2. Abdominal aortic aneurysm of significant size. 3. Cerebrovascular disease with dementia. 4. Acute on chronic renal failure. 5. Cardiogenic and septic shock. PLAN: 1. Comfort measures per advance directives. 2. Discontinue telemetry. 3. Topical nitrates. 4. Maintenance fluids. Arsenio Delgado M.D. DR: DEB JOB#: [id number] CC:
[2019-10-22] MEDS ORDERED: Acetaminophen 650 MG SUPP RECTAL PRN (00:30)
--- NOTE | 2019-10-23 14:43 | Discharge Summary ---
Discharge Summary Discharge Summary _ DATE OF ADMISSION: 10/17/2019 DATE OF DISCHARGE: 10/21/2019 BRIEF SUMMARY: Patient is an unfortunate 84-year-old male, resident of [facility]. Patient has dementia and is bedridden. He was transferred to the hospital due to chest congestion. He is DNR. He was reported to have cough. On evaluation at ED, WBC was elevated to 15. Hemoglobin 10.7, hematocrit 32. Creatinine was elevated to 1.6. Lactic acid 3.3. Troponin was borderline indeterminate. Urinalysis was positive for nitrite, 3+ leukocyte esterase, too numerous to count urine WBC, 2-4 urine RBC and moderate bacteria. EKG was in normal sinus rhythm. Chest x-ray showed cardiomegaly with apical reticulonodular opacities. Patient was admitted for sepsis. He was placed on n.p.o. Patient prone to aspiration. Discussed with the DPOA patient's CODE STATUS. Avoid any heroic measures. No GT or NGT per DPOA. Patient was given gentle IV hydration. ID specialist consulted. Patient sepsis suspected due to UTI/pyelonephritis. Patient was started empirically on meropenem and Zyvox pending culture results. He had elevated troponin levels. Internal Audit Director consulted. EKG in the emergency room revealed sinus rhythm with nonspecific STT wave changes. He was given antiplatelet therapy. No role for diuresis at this time. Kidney ultrasound showed mildly increased renal echogenicity, consistent with medical renal disease. Negative for hydronephrosis. There was an incidental finding of an enlarged abdominal aortic aneurysm. Surgeon was consulted. Patient had a massive fusiform aneurysm measuring 11.7 cm transverse by 10.6 cm AP with mural thrombus. No acute surgical intervention required given goals of care and overall medical condition. Urine culture showed growth of E. coli. Meropenem was switched to ceftriaxone. Monitored rhythm showed episodes of second-degree AV block and bradycardia arrhythmia. Coreg and clonidine discontinued. Patient condition continued to decline. Troponin showed up to 177. Creatinine went up to 2.7. Patient suffered significant myocardial ischemia and infarction. He was hypotensive and did not respond to fluid challenges. Patient was given comfort care. He eventually . FINAL DIAGNOSES: Cardiogenic and septic shock Acute myocardial infarction E. coli pyelonephritis Acute encephalopathy Abdominal aortic aneurysm Cerebrovascular disease with dementia Acute on chronic renal failure Comfort care/terminal care DISPOSITION: Patient . I have been assigned to complete a discharge summary on this account, I was not involved with the patient's management.--GÓMEZ Brwon Jacqueline Robles NP Oct 23, 2019 14:43
== END 2019-10-21 19:45 | disposition expired | DRG 871 ==
LOC: EDBD 21:57 → EMR 23:45 → 2E 23:58 → EDBEDREQ 10-18 00:28 → 4E 10-21 12:35
DX: A41.9 Sepsis, unspecified organism (principal); I50.33 Acute on chronic diastolic (congestive) heart failure; I21.A1 Myocardial infarction type 2; G93.41 Metabolic encephalopathy; R65.21 Severe sepsis with septic shock; J18.9 Pneumonia, unspecified organism; I21.4 Non-ST elevation (NSTEMI) myocardial infarction; N17.9 Acute kidney failure, unspecified; I13.0 Hypertensive heart and chronic kidney disease with heart failure and stage 1 through stage 4 chronic kidney disease, or unspecified chronic kidney disease; N10 Acute pyelonephritis; Z66 Do not resuscitate; Z88.0 Allergy status to penicillin; Z95.1 Presence of aortocoronary bypass graft; I25.10 Atherosclerotic heart disease of native coronary artery without angina pectoris; B96.20 Unspecified Escherichia coli [E. coli] as the cause of diseases classified elsewhere; I71.4 Abdominal aortic aneurysm, without rupture; N18.9 Chronic kidney disease, unspecified; Z51.5 Encounter for palliative care; F01.50 Vascular dementia, unspecified severity, without behavioral disturbance, psychotic disturbance, mood disturbance, and anxiety; Y95 Nosocomial condition; I25.5 Ischemic cardiomyopathy; E53.8 Deficiency of other specified B group vitamins; I44.1 Atrioventricular block, second degree; R13.10 Dysphagia, unspecified; S01.01XA Laceration without foreign body of scalp, initial encounter; X58.XXXA Exposure to other specified factors, initial encounter
CPT/HCPCS: 36415; 71045; 76770; 80053; 81003; 82550; 82553; 82607; 82728; 82746; 82962; 82977; 83540; 83550; 83605; 83735; 83880; 84100; 84443; 84484; 84550; 85007; 85025; 86140; 87040; 87081; 87086; 87181; 93005; 96365; 96372; 96375; 99291